=== PATIENT | male | born 1945 | race Two or more races ===

== ENCOUNTER 2024-10-06 09:30 | Outpatient (RCR) | payer MEDICARE, MEDICAID, SELFPAY ==
--- NOTE | 2024-09-29 14:53 | CTCCONSULT_ITS ---
[facility] [address] [place], [place] [address] Consultation Note Date: 09/29/2024 MR#: [id number] Name: LIZA DHALIWAL : 1945 Dx: C61 Malignant neoplasm of prostate Referring physician. Anmol Lewis MD Reason for consultation. Patient with history of prostate with bone mets with significant pain in kat mbar region referred for radiation oncology consultation. History of Present Illness: Patient is a 78-year-old gentleman well-known to me who underwent prostat ectomy at [facility] in December 05, 2011 for [place] score 9 prostate CA. Final path was pT3b N1 with 3 po sitive nodes and tumor involvement of seminal vesicle on the left side. PSA began rising slowly up t o 0.7 on 07/31/2018 and was recommended to postop radiation. At the time imaging studies showed no de finite evidence of mets. Patient completed 6660 cGy to the prostate region on January 27 with Lupron i njection 7.5 mg but did not wish to get it beyond the few monthly doses after his PSA became less flakita n 0.10. He also did not come back for follow-up for over years. Recently patient has been followed by Dr. Lewis and his PSA was noted to be very high at > 100 on and when repeated was also greater than 100. Patient has been having pain in his lumbar area Abdominal pelvic CT scan. 05/29/2024 revealed left lateral. Lymphadenopathy as well as pelvic lymph adenopathy. Bone scan 09/14/2024 and compared with one done 07-04 showed progression of osseous bone m ets L2-L3 and T3 area. Dr. Lewis has initiated Lupron patient and according to patient 3 monthly d oses thus far. Patient now referred for radiation oncology consultation. Past Medical History: Prostate cancer since 2011 status post prior surgery radiation and now with rec urrence. High blood pressure kidney stones diabetes Meds. 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 Denies smoking drinking Family history. Noncontributory Review of Systems: Has had significant low back lumbar pain denies thoracic area pain Physical Exam: General: Adequate nourished appearing gentleman in no acute distress HEENT: Atraumatic no cephalic extraocular is intact no oral lesions no cervical or supraclavicular ad enopathy CV: Chest clear to auscultation heart regular rate and rhythm ABD: Soft no organomegaly or tenderness EXT: No signs of clubbing or edema Back. Moderate tenderness in the lumbar area noted. Assessment:1. History of pT3pN1 CA the prostate status post prostatectomy November 2011. 2. XRT to the prostate region for high risk features and rising PSA January 2019 3. Recent discovery of very high PSA greater than 100 associated with bone mets in thoracolumbar are a as well as abdominal pelvic mets. 4. Receiving monthly Lupron injections for the past [address] Lewis's direction according to patient. 5. Radiation therapy would palliate patient's symptoms in the lumbar area. Denies pain in the thora cic region. Declines MRI that was suggested citing delays and his likely short lifespan considering his age. 6. We will use to lumbar spine our CT simulator along with the review of his CT scan and bone scan t o begin his treatment in a few days. 3000 cGy in 10 fractions via VMAT suggested. 7. Shall get imaging studies including PET along with other lab tests to evaluate his overall cancer condition and his treatment response. 8. Thank you very much for allowing me to evaluate and manage this patient.: Cc: Anmol Lewis MD Electronically signed by: Ryder Warren MD, DABR 09/29/2024 2:51 PM
--- NOTE | 2024-09-29 14:54 | CTCTXPLN_ITS ---
[facility] [place] [address] [place], [place] [address] Physician Clinical Treatment Planning Note Date of Service: 09/29/2024 Name: LIZA DHALIWAL : 1945 The patient has agreed to proceed with Radiation therapy. Tests and supporting medical records were interpreted to assist in defining the tumor location and extent of disease. Further imaging will be necessary to contour and delineate the volume to which the XRT will be provided. A. Treatment Intent: Palliative B. Modality: 6 MV C. Requested Technique: VMAT D. Treatment Site: L-spine E. Critical structures to be contoured on plan: F. In order to accomplish this plan, I am ordering/Prescribing the followin. Simulations (s) will be performed to accomplish a reproducible treatment position, to determine op timal treatment portals/beam arrangements, to design beam modifying devices and verify treatment port als on patient prior to the commencement of Radiation Therapy. L-spine 2. Devices; for immobilization and beam shaping: Vac-Nico 3. CT Guidance for placement of XRT bedoya Scan area: 4. Portal images Frequency: 5. Invivo transit dose measurement once per week on all VMAT patients. 6. Special Physics Consult Requested for: 7. Other requests: G. Dose Objectives: Palliative Electronically signed by: Ryder Warren M.D. 09/29/2024 2:52 PM
--- NOTE | 2024-09-29 14:55 | CTCTXPLNST_ITS ---
Radiation Oncology Treatment Planning Sheet Name: LIZA DHALIWAL MR#: [id number] : 1945 Dx: C61 Malignant neoplasm of prostate Date of Service: 09/29/2024 Account #: ?? Pt Treatment Intent: curative palliative other: Stage: Procedure CPT # Ordered Spec. Procedure 33842 Gil Complex (set-up) 04296 T 12 ? sacrum (treating L spine) 1 Gil Simple 50231 IMRT Plan 36889 1 MLC Devices VMAT 39763 3 Gil 3 D 71160 TRTMT dev Complex 09760 vaklok 1 TRTMT dev simple 31876 Basic Vincent 56508 6 Special Dosimetry 22826 Spec Physics 64884 Port Films 43966 SRS Cranial/1FX 61748 SBR 5 FX or Less /ex: 5 = 5 fx 92526 IMRT Simple 41647 3000 10 IMRT Complex 05677 IGRT 60879 8 Rad del com 6- 74746 Rad del com 09-29 06474 Cont Med Physics 63109 2 Treatment Planning 20449 1 Rad del com 20 mev 54372 Rad del inter 6 58557 Rad del inter 09-29 66134 Rad del simple 6 18623 Rad del simple 09-29 63588 Special Port Plan 63302 TRTMT dev inter 09476 Isodose Complex 71606 Isodose simple 04216 Resp Motion Mgmt Simulation 90210 Placement of Fiducial Markers 85682 Electronically Signed By: Ryder Warren MD, DABR 09/29/2024 2:53 PM
== END 2024-10-10 23:59 | disposition home or self-care (01) ==
LOC: SCTC 09:30
PROVIDERS: PCP Nurse Practitioner Family; Referring Provider Surgery; Visit Provider Radiology Therapeutic Radiology
DX: C61 Malignant neoplasm of prostate (principal); C79.51 Secondary malignant neoplasm of bone; Z90.79 Acquired absence of other genital organ(s); Z79.818 Long term (current) use of other agents affecting estrogen receptors and estrogen levels
CPT/HCPCS: 77014; 77290; 77300; 77301; 77334; 77338; 99213; G0463

== ENCOUNTER → 2024-11-03 | Outpatient (CLI) | payer MEDICARE, MEDICAID, SELFPAY ==
--- NOTE | 2024-11-03 08:00 | XR_ITS ---
Examination: MRI thoracic spine with intravenous contrast Technique: Multiple axial sagittal MRI images thoracic spine post intravenous administration 17 cc gadolinium Exam date and time: November 03, 2024 1019 hrs. Indications: Diagnosis malignant neoplasm prostate with back pain 4 months, positive nuclear medicine bone scan T3 Findings: Adequate alignment thoracic vertebral bodies No thoracic fracture No abnormal osseous enhancement characteristic for osseous metastatic disease No epidural or cervical cord enhancement Impression: No findings diagnostic for osseous metastatic disease
--- NOTE | 2024-11-03 08:30 | XR_ITS ---
Examination: MRI lumbar spine with intravenous contrast Technique: Multiple sagittal and axial MRI images post intravenous ministration 17 cc gadolinium Exam date and time: 06/03/2024 1049 hrs. Indications: Diagnosis malignant neoplasm prostate back pain, positive nuclear medicine bone scan September 14, 2024 L2-L3 level Findings: Adequate alignment lumbar vertebral bodies Significant enhancement involving L2, lesser enhancement involving L3-L4 and L1 Disc protrusion L2-L3 but no epidural tumor impinging upon the cauda equina Impression: Positive for osseous metastatic disease, but no thoracic cord or cauda equina definite tumor compression on this study
[2024-11-03 09:20] LABS: Basophils % (Auto) 0 % (0-2.5); Eosinophils # (Auto) 0.2 Thou/mm3 (0.0-0.5); Eosinophils % (Auto) 2 % (0-10); Hematocrit 39.7 % (41.0-53.0); Hemoglobin 13.4 g/dL (13.5-16.0); Immature Granulocytes % (Auto) 0 % (0-0); Immature Granulocytes Auto 0.02 Thou/mm3 (0.00-0.00); Lymphocytes # (Auto) 0.7 Thou/mm3 (1.0-4.8); Lymphocytes % (Auto) 11 % (10-50); Mean Corpuscular HGB Conc 33.8 g/dl (31.0-37.0); Mean Corpuscular Volume 89 fL (80-100); Monocytes # (Auto) 0.8 Thou/mm3 (0.0-0.8); Monocytes % (Auto) 12 % (0-12); Neutrophils # (Auto) 4.9 Thou/mm3 (1.8-7.7); Neutrophils % (Auto) 74 % (37-80); Nucleated Red Blood Cell % 0 /100 WBC (0); Platelet Count 236 Thou/mm3 (140-440); RDW Standard Deviation 41.1 fL (35.1-43.9); Red Blood Count 4.46 Miln/mm3 (4.50-5.90); White Blood Count 6.6 Thou/mm3 (3.8-10.6)
[2024-11-03 09:45] LABS: Prostate Specific Antigen 5.64 ng/mL (0-4.00)
[2024-11-03 09:48] LABS: Alanine Aminotransferase 27 U/L (10-49); Albumin, Serum 4.5 gm/dL (3.4-4.8); Albumin/Globulin Ratio 1.4 (1.2-2.2); Alkaline Phosphatase 104 U/L (46-116); Anion Gap 5 (7-16); Aspartate Amino Transferase 13 U/L (0-34); BUN/Creatinine Ratio 20 Ratio (12-20); Bilirubin,Total 0.6 mg/dL (0.3-1.2); Blood Urea Nitrogen 20 mg/dL (9-23); Calcium 9.8 mg/dL (8.3-10.6); Calcium (Corrected) 9.8 mg/dL (8.5-10.1); Carbon Dioxide 33.4 mMol/L (20.0-31.0); Chloride 99 mMol/L (98-107); Globulin 3.3 gm/dL (2.3-3.5); Glucose 199 mg/dL (74-106); Osmolality,Calculated 282 (275-295); Potassium 3.9 mMol/L (3.4-5.1); Sodium 137 mMol/L (136-145); Total Protein 7.8 gm/dL (5.7-8.2); eGFR > 60 See Note
== END | disposition home or self-care (01) ==
PROVIDERS: PCP Registered Nurse Community Health; Referring Provider Radiology Therapeutic Radiology; Visit Provider Radiology Therapeutic Radiology
DX: C79.9 Secondary malignant neoplasm of unspecified site (principal); C61 Malignant neoplasm of prostate
CPT/HCPCS: 36415; 72147; 72149; 80053; 84153; 85025; A9579

== ENCOUNTER 2024-11-10 10:07 | Outpatient (RCR) | payer MEDICARE, MEDICAID, SELFPAY ==
--- NOTE | 2024-10-19 10:36 | CTCTRTNOTE_ITS ---
[facility] [address] [place], [place] [address] Weekly Management Date: 10/19/2024 ?? Name: LIZA MADHURI Mcdonough.: 1945 A. Patient is currently at 1200 cGy. B. Patient tolerating well has no complaints resume radiation therapy. Electronically signed by: Ryder Warren M.D. 10/19/2024 10:34 AM
== END 2024-11-10 23:59 | disposition home or self-care (01) ==
LOC: SCTC 10:07
PROVIDERS: PCP Nurse Practitioner Family; Referring Provider Nurse Practitioner Family; Visit Provider Radiology Therapeutic Radiology
DX: Z51.0 Encounter for antineoplastic radiation therapy (principal); C61 Malignant neoplasm of prostate; C79.51 Secondary malignant neoplasm of bone
CPT/HCPCS: 77336; 77385; 99212; G0463

== ENCOUNTER → 2025-02-03 | Outpatient (CLI) | payer MEDICARE, MEDICAID, SELFPAY ==
--- NOTE | 2025-02-03 15:24 | EKG_ITS ---
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: ABIGAILLauren : 1945 Requested By: Glen Greene Order Number: [id number] Reading MD: Glen Greene Measurements Intervals [place] Rate: 62 P: 14 WV: 207 QRS: 4 QRSD: 94 T: 52 QT: 411 QTc: 419 Interpretive Statements SINUS RHYTHM MINIMAL VOLTAGE CRITERIA FOR LVH, CONSIDER NORMAL VARIANT [MEETS CRITERIA IN ONE OF: R(aVL), S(V1), R(V5), R(V5/V6)+S(V1)] INFERIOR MYOCARDIAL INFARCTION , PROBABLY OLD [40+ ms Q WAVE AND/OR ST/T ABNORMALITY IN II/aVF] Compared to ECG 01/20/2024 15:28:28 Myocardial infarct finding now present First degree AV block no longer present /store/S0/[id number]/ecg/[id number].pdf
[2025-02-03 15:25] LABS: Basophils # (Auto) 0.1 Thou/mm3 (0.0-0.2); Basophils % (Auto) 1 % (0-2.5); Eosinophils # (Auto) 0.6 Thou/mm3 (0.0-0.5); Eosinophils % (Auto) 8 % (0-10); Hematocrit 37.2 % (41.0-53.0); Hemoglobin 12.4 g/dL (13.5-16.0); Immature Granulocytes % (Auto) 0 % (0-0); Immature Granulocytes Auto 0.01 Thou/mm3 (0.00-0.00); Lymphocytes # (Auto) 1.4 Thou/mm3 (1.0-4.8); Lymphocytes % (Auto) 19 % (10-50); Mean Corpuscular HGB Conc 33.3 g/dl (31.0-37.0); Mean Corpuscular Volume 93 fL (80-100); Monocytes % (Auto) 13 % (0-12); Neutrophils # (Auto) 4.4 Thou/mm3 (1.8-7.7); Neutrophils % (Auto) 59 % (37-80); Nucleated Red Blood Cell % 0 /100 WBC (0); Platelet Count 336 Thou/mm3 (140-440); RDW Standard Deviation 45.8 fL (35.1-43.9); White Blood Count 7.4 Thou/mm3 (3.8-10.6)
[2025-02-03 15:46] LABS: Anion Gap 7 (7-16); BUN/Creatinine Ratio 22 Ratio (12-20); Blood Urea Nitrogen 33 mg/dL (9-23); Calcium 10.3 mg/dL (8.3-10.6); Carbon Dioxide 33.7 mMol/L (20.0-31.0); Chloride 100 mMol/L (98-107); Creatinine (Component) 1.5 mg/dL (0.6-1.3); Glucose 69 mg/dL (74-106); Osmolality,Calculated 286 (275-295); Potassium 4.4 mMol/L (3.4-5.1); Sodium 141 mMol/L (136-145); eGFR 48 See Note
== END | disposition home or self-care (01) ==
LOC: COPL 14:41
PROVIDERS: PCP Family Medicine
DX: Z01.818 Encounter for other preprocedural examination (principal)
CPT/HCPCS: 36415; 80048; 85025; 93005

== ENCOUNTER 2025-02-05 05:59 | Emergency (ER) | payer MEDICARE, MEDICAID, SELFPAY ==
[2025-02-05 06:00] VITALS: BMI 31.3
[2025-02-05 06:13] VITALS: BP 229/97; BP 243/117; PULSE 82; RESP 18; TEMP 37; O2SAT 95
--- NOTE | 2025-02-05 06:49 | XR_ITS ---
Examination: Duplex scan of the lower extremity, unilateral left complete Date and time of exam: January 28, 2025 0747 hours INDICATIONS: Left leg pain beginning 3 days ago Technique: Duplex scan of the extremity veins using B-mode/grayscale imaging and Doppler spectral analysis and color flow Attention is directed to internal echogenicity, compression and augmentation involving these veins, color flow assessment, spectral analysis Findings: Major deep venous structures in the extremity demonstrate normal course and caliber. There is no evidence of deep vein thrombosis. Normal color flow and spectral analysis Impression: Negative for DVT..
--- NOTE | 2025-02-05 06:51 | XR_ITS ---
Examination:Left hip AP, lateral, AP pelvis 3 views Technique: Hip AP lateral, AP pelvis, 3 views Exam date and time:February 05, 2025 0812 hours INDICATIONS: Onset left hip pain today. 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
[2025-02-05] MEDS: ONDANSETRON INJ 2 MG/ML INJ 2 ML 4 MG IV (07:21)
[2025-02-05] MEDS: MORPHINE SULF INJ 10 MG/ML VIAL 5 MG IVP (07:23)
[2025-02-05 07:25] VITALS: BP 244/94; PULSE 80; RESP 17; TEMP 36.9; O2SAT 90
[2025-02-05 07:34] VITALS: PULSE 77; RESP 17; RESP 90; O2SAT 95
[2025-02-05 07:37] LABS: Basophils % (Auto) 1 % (0-2.5); Eosinophils # (Auto) 0.6 Thou/mm3 (0.0-0.5); Eosinophils % (Auto) 7 % (0-10); Hematocrit 36.6 % (41.0-53.0); Hemoglobin 12.3 g/dL (13.5-16.0); Immature Granulocytes % (Auto) 0 % (0-0); Immature Granulocytes Auto 0.02 Thou/mm3 (0.00-0.00); Lymphocytes # (Auto) 1.1 Thou/mm3 (1.0-4.8); Lymphocytes % (Auto) 13 % (10-50); Mean Corpuscular HGB Conc 33.6 g/dl (31.0-37.0); Mean Corpuscular Hemoglobin 30.8 pg (25.0-35.0); Mean Corpuscular Volume 92 fL (80-100); Monocytes # (Auto) 1.1 Thou/mm3 (0.0-0.8); Monocytes % (Auto) 13 % (0-12); Neutrophils # (Auto) 5.3 Thou/mm3 (1.8-7.7); Neutrophils % (Auto) 66 % (37-80); Nucleated Red Blood Cell % 0 /100 WBC (0); Platelet Count 313 Thou/mm3 (140-440); RDW Standard Deviation 44.6 fL (35.1-43.9); Red Blood Count 3.99 Miln/mm3 (4.50-5.90); White Blood Count 8.1 Thou/mm3 (3.8-10.6)
[2025-02-05 07:53] LABS: Sed Rate (ESR) 13 mm/hr (0-20)
[2025-02-05 07:58] LABS: Alanine Aminotransferase 23 U/L (10-49); Albumin, Serum 4.1 gm/dL (3.4-4.8); Albumin/Globulin Ratio 1.3 (1.2-2.2); Alkaline Phosphatase 103 U/L (46-116); Anion Gap 6 (7-16); Aspartate Amino Transferase 23 U/L (0-34); BUN/Creatinine Ratio 21 Ratio (12-20); Bilirubin,Total 0.6 mg/dL (0.3-1.2); Blood Urea Nitrogen 29 mg/dL (9-23); Calcium 9.2 mg/dL (8.3-10.6); Calcium (Corrected) 9.2 mg/dL (8.5-10.1); Chloride 101 mMol/L (98-107); Creatinine (Component) 1.4 mg/dL (0.6-1.3); Estimated Creatinine Clearance 45.9 mL/min (>60); Globulin 3.1 gm/dL (2.3-3.5); Glucose 194 mg/dL (74-106); Osmolality,Calculated 286 (275-295); Potassium 4.5 mMol/L (3.4-5.1); Sodium 138 mMol/L (136-145); Total Protein 7.2 gm/dL (5.7-8.2); eGFR 52 See Note
--- NOTE | 2025-02-05 08:59 | PD.EDEXREM ---
ED Extremity Problem RME/HPI General Chief complaint: Extremity Injury, Lower Stated complaint: LEFT LEG PAIN Time Seen by Provider: 02/05/25 06:31 Arrival date/time: 02/05/25 05:59 RME / HPI RME / HPI Narrative: 79 year old male with history of prostate cancer with bone mets, underwent radiation therapy, hypertension, diabetes presents to the ED for complaint of left lower extremity pain beginning 3 days ago and remaining constant since. Described as a cramping sensation that runs along the entire leg with an aching pain to his left hip, rating as moderate to severe. Pain aggravated with movements and walking, minimally improved with immobilization. Denies any falls, injuries, or trauma. Denies any history of similar pain. Denies fevers, chills, leg swelling or redness. Related Data Home Medications ?Medication ?Instructions ?Recorded ?Confirmed benazepril 40 mg tablet 80 mg PO QDAY 05/05/19 06/24/23 metformin 500 mg tablet 500 mg PO BID 05/05/19 06/24/23 carvedilol 25 mg tablet 25 mg PO BID 08/19/21 06/24/23 atorvastatin 20 mg tablet 20 mg PO QDAY 04/26/23 06/24/23 hydrochlorothiazide 50 mg tablet 50 mg PO QDAY 04/26/23 06/24/23 insulin lispro protamine-lispro 50 unit subcut BID 04/26/23 06/24/23 100 unit/mL (75-25) subcutaneous pen (Humalog Mix 75-25 KwikPen) clonidine HCl 0.1 mg tablet 0.1 mg PO DAILY 06/24/23 06/24/23 semaglutide 3 mg tablet (Rybelsus) 3 mg PO QDAY 06/24/23 06/24/23 Previous Rx's ?Medication ?Instructions ?Recorded hydrocodone 5 mg-acetaminophen 325 1 tab PO Q6H PRN pain #14 tabs 01/20/24 mg tablet Allergies Allergy/AdvReac Type Severity Reaction Status Date / Time No Known Allergies Allergy Verified 06/25/23 10:27 Review of Systems Review of Systems Narrative Review of Systems: GEN: No fever, no chills EYES: No discharge, no pain HEENT: No ear pain, no congestion, no sore throat PULM: No shortness of breath, no cough CV: No chest pain, no palpitations GI: No nausea, no vomiting, no diarrhea, no pain : No frequency, no urgency, no dysuria MUSC/SKEL: +LLE pain, +left hip pain, no back pain SKIN: No rash NEURO: No weakness, no headache Past Medical History Past Medical History CARDIAC: Positive Cardiac Disorders, Hypercholesterolemia and Hypertension GASTROINTESTINAL: Positive Gastrointestinal Disorders and Obesity GENITOURINARY: Positive Prostate Cancer MUSCULOSKELETAL: Positive Musculoskeletal Disorders, Arthritis and Degenerative Disk Disease ENT: Positive Cataracts ENDOCRINE: Positive Endocrine Disorders and Diabetes Mellitus Type 2 PSYCHO/SOCIAL: Positive Depression and Anxiety OTHER HISTORY: Positive Chemotherapy, Radiation Therapy and Prostate Cancer Family History FAMILY HISTORY: Positive Family Surgery Surgical History SURGICAL: Positive Transurethral Resection; Negative Cardiac Surgery or Ear Surgery Social History SMOKING STATUS: Never smoker ED Exam Narrative Physical exam: GENERAL APPEARANCE: alert and oriented x 4, well-developed, well-nourished, no acute distress HEENT: Normocephalic, atraumatic; pupils equal, round, reactive to light; EOMI; mucous membranes pink, moist; oropharynx clear NECK: Supple LUNGS: CTABL; no wheezes, no rales, no rhonchi HEART: Regular rate, regular rhythm; normal S1, S2; no murmurs ABDOMEN: non distended; normal BS; soft, no tenderness, no guarding, no rebound; no masses, no organomegaly, no hernia BACK: no CVA tenderness EXTREMITIES: atraumatic; no edema NEUROLOGIC: awake; alert and oriented x4; cranial nerves II-XII grossly intact; no focal sensory or motor deficits PSYCHIATRIC: appropriate mood and affect SKIN: warm, dry, normal color; no rashes Course Course Course Narrative: 1208: Patient is deciding to leave against medical advise. I discussed a great length that without further evaluation and monitoring there may be unforeseen circumstances and deterioration causing permanent bodily harm or as a result of their choice. The patient is alert, oriented and competent at this time. The patient states that they are aware of the serious risks as explained, but they continue to wish to leave against medical advice. Quality Measures none Orders Category Date Time Status US venous doppler LE LT Stat Exams 02/05/25 06:49 Completed XR hip LT w pelvis 2-3V Stat Exams 02/05/25 06:51 Completed CBC Stat Lab 02/05/25 07:20 Completed CMP [Comprehensive Metabolic Panel] Stat Lab 02/05/25 07:20 Completed D-Dimer Stat Lab 02/05/25 07:20 Completed ESR [Sed Rate (ESR)] Stat Lab 02/05/25 07:20 Completed Morphine Inj Med 02/05/25 06:50 Discontinued 5 mg IVP X1 ONE Ondansetron Inj [Zofran Inj] Med 02/05/25 06:50 Discontinued 4 mg IV X1 ONE cloNIDine HCL [Catapres] Med 02/05/25 10:27 Discontinued 0.2 mg PO X1 ONE Vital Signs Vital signs: Vital Signs Temperature 98.6 F 02/05/25 06:13 Pulse Rate 82 02/05/25 06:13 Respiratory Rate 18 02/05/25 06:13 Blood Pressure 243/117 H 02/05/25 06:13 Pulse Oximetry (%) 95 02/05/25 06:13 Oxygen Delivery Method Room Air 02/05/25 06:13 Pulse ox is 95% on room air which is adequate. Extremity Problem MDM Narrative MDM Narrative:: Gabriella Pierce am scribing for and in the presence of Dr. Love. Patient data External records reviewed:: [facility] previous records (I reviewed ED visit on 01/20/2024) Clinical information provided by:: patient Social determinants that could affect healthcare access:: none Patient has the following chronic illnesses:: prostate cancer with bone mets, underwent radiation therapy, hypertension, diabetes How is presenting disease/condition affected by chronic disease/condition?: exacerbated by Evaluation data The following diagnostics were reviewed and interpreted by me:: lab results and radiology exam(s) (Hip/pelvis xray interpreted by me shows no fracture or dislocation, large stool burden, adequate joint space. ) Lab and/or radiology exams considered but not ordered:: None Interpretation Summary: Ordering Physician: Keri Love MD Date of Service: 02/05/25 Procedure(s): US venous doppler LE LT Accession Number(s): [id number] cc: Glen Greene PA-C; Jefferson Schwartz MD; Keri Love MD~ Examination: Duplex scan of the lower extremity, unilateral left complete Date and time of exam: January 28, 2025 0747 hours INDICATIONS: Left leg pain beginning 3 days ago Technique: Duplex scan of the extremity veins using B-mode/grayscale imaging and Doppler spectral analysis and color flow Attention is directed to internal echogenicity, compression and augmentation involving these veins, color flow assessment, spectral analysis Findings: Major deep venous structures in the extremity demonstrate normal course and caliber. There is no evidence of deep vein thrombosis. Normal color flow and spectral analysis Impression: Negative for DVT.. Dictated By: Jefferson Schwartz MD Signed By: <Electronically signed by Jefferson Schwartz MD in OV> 02/05/25 0940 Ordering Physician: Keri Love MD Date of Service: 02/05/25 Procedure(s): XR hip LT w pelvis 2-3V Accession Number(s): [id number] cc: Glen Greene PA-C; Jefferson Schwartz MD; Keri Love MD~ Examination:Left hip AP, lateral, AP pelvis 3 views Technique: Hip AP lateral, AP pelvis, 3 views Exam date and time:February 05, 2025 0812 hours INDICATIONS: Onset left hip pain today. 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 Dictated By: Jefferson Schwartz MD Signed By: <Electronically signed by Jefferson Schwartz MD in OV> 02/05/25 0921 Medications / Prescriptions Medications or Prescriptions considered but not ordered:: None Medication administrations:: Medication Administration History Discontinued Medications Clonidine (Clonidine Hcl 0.1 Mg Tablet) 0.2 mg PO X1 ONE Stop: 02/05/25 10:28 Last Admin: 02/05/25 10:31 Dose: 0.2 mg Documented By: GM Morphine Sulfate (Morphine Sulf Inj 10 Mg/Ml Vial) 5 mg IVP X1 ONE Stop: 02/05/25 06:51 Last Admin: 02/05/25 07:23 Dose: 5 mg Documented By: GM Ondansetron HCl (Ondansetron Inj 2 Mg/Ml Inj 2 Ml) 4 mg IV X1 ONE Stop: 02/05/25 06:51 Last Admin: 02/05/25 07:21 Dose: 4 mg Documented By: GM see above Consultations Consultation(s) initiated? (list below): No Diagnosis Extremity Problem Differential Diagnosis: gout, cellulitis, superficial thrombophlebitis, lower extremity edema and deep vein thrombosis of lower extremity Most likely diagnosis given after review of the tests above:: Left leg pain Admission Indicated Admission indicated?: not indicated Explain why admission is indicated or not indicated:: Patient left AMA Admission Request Was there a request for admission?: No Disposition Plan Disposition Plan: other (specify) (left AMA ) Discharge Plan Plan Patient Disposition: Left Against Medical Advice Prescriptions/Referrals Prescriptions/Med Rec: No Action benazepril 40 mg tablet 80 mg PO QDAY metformin 500 mg tablet 500 mg PO BID carvedilol 25 mg Tablet 25 mg PO BID hydrocodone-acetaminophen 5-325 mg tablet 1 tab PO Q6H MDD 9 PRN (Reason: pain) Qty: 14 0RF atorvastatin 20 mg tablet 20 mg PO QDAY Patient Comments: TAKE 1 TABLET BY MOUTH ONCE DAILY hydrochlorothiazide 50 mg tablet 50 mg PO QDAY Patient Comments: TAKE 1 TABLET BY MOUTH ONCE DAILY IN THE MORNING insulin lispro protamin-lispro [Humalog Mix 75-25 KwikPen] 100 unit/mL (75-25) insulin pen 50 unit SUBCUT BID Patient Comments: INJECT 50 UNITS SUBCUTANEOUSLY TWICE DAILY clonidine HCl 0.1 mg Tablet 0.1 mg PO DAILY Rybelsus 3 mg Tablet 3 mg PO QDAY Referrals: Glen Greene PA-C [Primary Care Provider] - In 1 week Problem List Clinical Impression: Left leg pain Patient/Caregiver Discharge Instructions Print Language: Micronesian
--- NOTE | 2025-02-05 09:31 | CHAP ---
Visited and prayed for patient. He expressed gratitude.
[2025-02-05 09:32] VITALS: BP 249/121; PULSE 79; RESP 18; TEMP 36.8; O2SAT 97
--- NOTE | 2025-02-05 10:28 | PC.NURSE ---
PT AMBULATED AROUND ROOM TO URINATE; PT PLACED BACK IN MONITORS . PT O2 SAT 74% ON RA; PT PLACED BACK IN NC @ 2L, PT NOW SATTING AT 99%. DR. IZAGUIRRE MADE AWARE. NO NEW ORDERS AT THIS TIME.
[2025-02-05 10:31] VITALS: BP 236/116; PULSE 83; RESP 15; TEMP 36.8; O2SAT 99
[2025-02-05] MEDS: cloNIDine HCL 0.1 MG TABLET 0.2 MG PO (10:31)
[2025-02-05 11:45] LABS: D-Dimer < 250 ng/mL (<600)
== END 2025-02-05 12:08 | disposition left against medical advice (07) ==
LOC: SERX 08:20
PROVIDERS: Emergency Provider Emergency Medicine; PCP Family Medicine
DX: M16.12 Unilateral primary osteoarthritis, left hip (principal); M79.605 Pain in left leg; Z53.29 Procedure and treatment not carried out because of patient's decision for other reasons
CPT/HCPCS: 36415; 73502; 80053; 85025; 85379; 85652; 93971; 96374; 96375; 99284; J2270; J2405; A9270

== ENCOUNTER 2025-02-06 05:08 | Emergency (ER) | payer MEDICARE, MEDICAID, SELFPAY ==
[2025-02-06 05:08] VITALS: BMI 31.1
[2025-02-06 05:16] VITALS: BP 184/74; PULSE 96; RESP 18; TEMP 36.7; O2SAT 92
--- NOTE | 2025-02-06 05:34 | EDRME_ITS ---
Rapid Medical Screening Exam [facility] Arrival date/time: 02/06/25 05:08 79M with history of stage 4 prostate cancer, DM, and HTN presents to ED with pain from waist down w/o fall/trauma. Patient was here yesterday with unremarkable blood work, US venous Doppler, and XR hip. Patient AMA'd yesterday because it was taking too long. Patient is back due to worsening pain. Patient has been taking Diclofenac and Gabapentin at home w/o relief. Patient states he has an appt in the next few days with his oncologist. Patient is okay seeing if a Hubbard will help and if it does, he is happy to go home with that w/o any further tests. Chief Complaint: Abdominal Pain Vital signs: Vital Signs Temperature 98.0 F 02/06/25 05:16 Pulse Rate 96 02/06/25 05:16 Respiratory Rate 18 02/06/25 05:16 Blood Pressure 184/74 H 02/06/25 05:16 Pulse Oximetry (%) 92 L 02/06/25 05:16 Oxygen Delivery Method Room Air 02/06/25 05:16
[2025-02-06] MEDS: HYDROcodone/APAP 5/325 TABLET 1 TAB PO (05:49)
[2025-02-06 06:49] VITALS: BP 146/93; PULSE 69; RESP 18; TEMP 36.7; O2SAT 91
--- NOTE | 2025-02-06 06:51 | EDNOTE_ITS ---
<Statement entered by Keri Love MD - 02/06/25 17:33> As co-signing physician, I was present and available for consult prn. I concur with the plan and care as documented by the midlevel provider. ED General RME/HPI General Chief complaint: Abdominal Pain Stated complaint: GROIN AND BILATERAL LEG PAIN Time Seen by Provider: 02/06/25 06:43 Arrival date/time: 02/06/25 05:08 CC: Lower extremity pain HPI patient has a significant history who comes to the emergency room with complaining of back pain and lower extremity pain. The patient was given Percocet prior to my arrival, at the time of the assessment at 652 the patient is feeling much better and wants to go home he is refusing all additional interventions. RME / HPI RME / HPI narrative: 02/06/25 05:08 79M with history of stage 4 prostate cancer, DM, and HTN presents to ED with pain from waist down w/o fall/trauma. Patient was here yesterday with unremarkable blood work, US venous Doppler, and XR hip. Patient AMA'd yesterday because it was taking too long. Patient is back due to worsening pain. Patient has been taking Diclofenac and Gabapentin at home w/o relief. Patient states he has an appt in the next few days with his oncologist. Patient is okay seeing if a [place] will help and if it does, he is happy to go home with that w/o any further tests. Related Data Home Medications ?Medication ?Instructions ?Recorded ?Confirmed benazepril 40 mg tablet 80 mg PO QDAY 05/05/1906/24 metformin 500 mg tablet 500 mg PO BID 05/05/1906/24 carvedilol 25 mg tablet 25 mg PO BID 08/19/21 atorvastatin 20 mg tablet 20 mg PO QDAY 04/26/2306/24 hydrochlorothiazide 50 mg tablet 50 mg PO QDAY 3 06/24/23 insulin lispro protamine-lispro 50 unit subcut BID 06/24/23 100 unit/mL (75-25) subcutaneous pen (Humalog Mix 75-25 KwikPen) clonidine HCl 0.1 mg tablet 0.1 mg PO DAILY 06/24/23 0 06/24/23 semaglutide 3 mg tablet (Rybelsus) 3 mg PO QDAY 06/24/23 Previous Rx's ?Medication ?Instructions ?Recorded hydrocodone 5 mg-acetaminophen 325 1 tab PO Q6H PRN pa in #14 tabs 01/20/24 mg tablet Allergies Allergy/AdvReac Type Severity Reaction Status Date / Time No Known Allergies Allergy Verified 06/25/23 10:27 Review of Systems Review of Systems Systems Reviewed: All systems reviewed, normal except as documented Past Medical History Past Medical History NEUROLOGIC: Negative Neurological Disorders or Seizures CARDIAC: Positive Cardiac Disorders, Hypercholesterolemia and Hypertension; Negative Congestive Heart Failure or Edema RESPIRATORY: Negative Chronic Obstructive Pulmonary Disease (COPD), Asthma or Pneumonia GASTROINTESTINAL: Positive Gastrointestinal Disorders and Obesity GENITOURINARY: Positive Prostate Cancer; Negative Genitourinary Disorders or Renal Disease MUSCULOSKELETAL: Positive Musculoskeletal Disorders, Arthritis and Degenerative Disk Disease ENT: Positive Cataracts ENDOCRINE: Positive Endocrine Disorders and Diabetes Mellitus Type 2; Negative Diabetes Mellitus Type 1 HEMATOLOGIC: Negative Blood Disorders, Anemia or Sickle Cell Disease PSYCHO/SOCIAL: Positive Depression and Anxiety OTHER HISTORY: Positive Chemotherapy, Radiation Therapy and Prostate Cancer; Negative Autoimmune Disease, Shingles, Falls, Blood Transfusions, Blood Transfusion Reaction, Anesthesia Reactions, MRSA, VRSA or Chicken Pox Family History FAMILY HISTORY: Positive Family Surgery; Negative Family Psychiatric Problems, Family Respiratory Disorders, Family Cardiac Disorders, Family Gastrointestinal Problems, Family Cancer or Family Anesthesia Reaction Surgical History SURGICAL: Positive Transurethral Resection; Negative Cardiac Surgery or Ear Surgery Social History SMOKING STATUS: Never smoker ED Exam Narrative Physical exam: [General: Appears not in any acute distress Head normocephalic HEENT: Within acceptable limits Neck is supple nontender Chest equal chest rise nontender to palpation Respiratory: Clear to auscultation no wheezes crackles or rubs CV: Rate rhythm is regular no murmurs rubs or clicks Abdomen soft nontender no masses positive bowel sounds all 4 quadrants Back: No CVA tenderness no spinous process tenderness from cervical spine thoracic and lumbar spine Skin: Intact no petechiae rash induration ulceration or crepitus Extremities: Moving all extremity against resistance cap refill less than 2 s econds neurosensory intact assessed in a wheelchair with a cane at his side. Neuro: Awake alert oriented x3 Glascow coma 15 no focal deficits] Course Quality Measures none Orders Category Date Time Status HYDROcodone*/APAP 5/325 [[place] 5/325] Med 02/06/25 05:34 Discontinued 1 tab PO X1 ONE Vital Signs Vital signs: Vital Signs Temperature 98.0 F 02/06/25 05:16 Pulse Rate 96 02/06/25 05:16 Respiratory Rate 18 02/06/25 05:16 Blood Pressure 184/74 H 02/06/25 05:16 Pulse Oximetry (%) 92 L 02/06/25 05:16 Oxygen Delivery Method Room Air 02/06/25 05:16 [facility] Patient data External records reviewed:: [facility] previous records Clinical information provided by:: patient Social determinants that could affect healthcare access:: none Patient has the following chronic illnesses:: Prostate CA How is presenting disease/condition affected by chronic disease/condition?: exacerbated by Evaluation data The following diagnostics were reviewed and interpreted by me:: other (specify) (None) Lab and/or radiology exams considered but not ordered:: None Interpretation Summary: Back pain lower extremity pain Medications Medications considered but not ordered:: None Medication administrations:: Medication Administration History Discontinued Medications Hydrocodone Bitart/Acetaminophen (Hydrocodone/Apap 5/325 Tablet) 1 tab PO X1 ONE Stop: 02/06/25 05:35 Last Admin: 02/06/25 05:49 Dose: 1 tab Documented By: CLAUDIA None Consultations Consultation(s) initiated? (list below): No Diagnosis Differential Diagnosis ED Complaint MDM: Back pain lower extremity pain poor pain management Most likely diagnosis given after review of the tests above:: Chronic pain Admission Indicated Admission indicated?: not indicated Explain why admission is indicated or not indicated:: Stable for discharge Admission Request Was there a request for admission?: No Disposition Plan Disposition Plan: Discharge Discharge Attestation Discharge Attestation: The patient and all family members were given an opportunity to ask questions and understood the discharge instructions. Discharge instructions specifically effects, indications for sooner follow up or return to the emergency department, and the expected course of current diagnosis. Patient condition: Stable Medical Decision Making Differential Diagnosis Differential Diagnosis: Back pain lower extremity pain poor pain management Discharge Plan Plan Patient Disposition: HOME (Self Care) Patient condition on transfer: Stable Prescriptions/Referrals Prescriptions/Med Rec: No Action benazepril 40 mg tablet 80 mg PO QDAY metformin 500 mg tablet 500 mg PO BID carvedilol 25 mg Tablet 25 mg PO BID hydrocodone-acetaminophen 5-325 mg tablet 1 tab PO Q6H MDD 9 PRN (Reason: pain) Qty: 14 0RF atorvastatin 20 mg tablet 20 mg PO QDAY Patient Comments: TAKE 1 TABLET BY MOUTH ONCE DAILY hydrochlorothiazide 50 mg tablet 50 mg PO QDAY Patient Comments: TAKE 1 TABLET BY MOUTH ONCE DAILY IN THE MORNING insulin lispro protamin-lispro [Humalog Mix 75-25 KwikPen] 100 unit/mL (75-25) insulin pen 50 unit SUBCUT BID Patient Comments: INJECT 50 UNITS SUBCUTANEOUSLY TWICE DAILY clonidine HCl 0.1 mg Tablet 0.1 mg PO DAILY Rybelsus 3 mg Tablet 3 mg PO QDAY Referrals: Glen Greene PA-C [Primary Care Provider] - In 1 week Problem List Clinical Impression: Back pain Patient/Caregiver Discharge Instructions Education Materials: Back Safety: Basics of Good Posture Additional Instructions: Follow-up with your primary care provider for additional pain management as necessary. Print Language: Greek Stand Alone Forms: Jayne Award Info., Patient Portal Info Letter SONG/DAVID Supervising Physician PA/DAVID Supervising Physician: Frederick Huffman ENP
== END 2025-02-06 07:02 | disposition home or self-care (01) ==
PROVIDERS: Emergency Provider Emergency Medicine; PCP Family Medicine
DX: M54.9 Dorsalgia, unspecified (principal); E11.9 Type 2 diabetes mellitus without complications; I10 Essential (primary) hypertension; M79.604 Pain in right leg; M79.605 Pain in left leg
CPT/HCPCS: 99283; A9270

== ENCOUNTER 2025-02-09 11:32 | Outpatient (RCR) | payer MEDICARE, MEDICAID, SELFPAY ==
--- NOTE | 2025-02-09 12:42 | CTCFLWUP_ITS ---
[facility] [address] [place], [place] [address] FOLLOW-UP NOTE Date: 02/09/2025 MR#: [id number] Name: LIZA DHALIWAL : 1945 Dx: C61 Malignant neoplasm of prostate C79.51 Secondary malignant neoplasm of bone Identification. Patient with history of prostate CA dating back to 2011 when he underwent surgery at [facility] for Margaux score 9 prostate CA [id number] . Noted to have rising PSA on 07/31/2018 and was recommended to postop radiation. Patient received 6660 cGy completing in January 2019 with limited Lupron injections which did not wish to go beyond several doses. Hips his PSA dropped to less than 0.1 and did not come back for several years Recently his PSA had risen dramatically over 100 with bone scan on 09/14/2024 showing widespread bony mets. MRI 11/03/2024 osseous mets involving L-spine but no cord involvement. Patient had 3000 cGy delivered to the L-spine area with good palliation of pain completed in October. Recently pain has returned not only in the back but the pelvic area. Went to the ER 02/05/2025 where pelvis x-ray did not show any obvious mets and venous Doppler left lower extremity was negative for DVT assessment #1 stage IV prostate CA with bone mets. Prior operation 2011 and postop radiation 2018 for rising PSA. #2. Bone mets noted with very high PSA for the past year. Lumbar radiation completed October 2024. #3. Dr. Lewis has reinitiated Lupron injections. #4. checked Paxers website. Will get MRI of the pelvis and bone scan prior to next visit. I elected to place patient on [place] 5 every 6 as needed Cc: Anmol Greene PA-C [facility] Electronically signed by: Ryder Warren M.D. 02/09/2025 12:40 PM
== END 2025-03-10 23:59 | disposition home or self-care (01) ==
LOC: SCTC 11:32
PROVIDERS: PCP Family Medicine; Referring Provider Family Medicine; Visit Provider Radiology Therapeutic Radiology
DX: C61 Malignant neoplasm of prostate (principal); C79.51 Secondary malignant neoplasm of bone; Z92.3 Personal history of irradiation
CPT/HCPCS: 99213; G0463

== ENCOUNTER 2025-02-15 02:31 | Emergency (ER) | payer MEDICARE, MEDICAID, SELFPAY ==
[2025-02-15 02:43] VITALS: BP 209/104; PULSE 78; RESP 15; TEMP 37; O2SAT 96
[2025-02-15 02:44] VITALS: BMI 31.3
--- NOTE | 2025-02-15 02:57 | PD.EDADULT ---
ED General RME/HPI General Chief complaint: General Adult/Misc Complain Stated complaint: LEFT LOWER BACK PAIN RADIATING TO LEG Time Seen by Provider: 02/15/25 02:39 Arrival date/time: 02/15/25 02:31 RME / HPI RME / HPI narrative: 79-year-old male with history of stage IV metastatic prostate cancer with bony metastasis, diabetes, hypertension, hyperlipidemia presents for evaluation of chronic left leg pain. Patient reports that he took Mabie 5 mg at approximately 01 100 today with minimal relief in his symptoms. He states he has been taking it every 6 hours with minimal pain relief. Denies chest pain, shortness of breath, headache, weakness, visual changes, fever, urinary retention, hematuria, abdominal pain, numbness, constipation. Patient was recently seen in the ED with similar symptoms and had a workup that was negative for DVT and acute changes to bony pelvis. Patient is being followed by oncology and had his most recent appointment last week with plan for future MRI. Patient reports he has been noncompliant with his blood pressure medication for the last several days. Related Data Home Medications ?Medication ?Instructions ?Recorded ?Confirmed benazepril 40 mg tablet 80 mg PO QDAY 05/05/19 06/24/23 metformin 500 mg tablet 500 mg PO BID 05/05/19 06/24/23 carvedilol 25 mg tablet 25 mg PO BID 08/19/21 06/24/23 atorvastatin 20 mg tablet 20 mg PO QDAY 04/26/23 06/24/23 hydrochlorothiazide 50 mg tablet 50 mg PO QDAY 04/26/23 06/24/23 insulin lispro protamine-lispro 50 unit subcut BID 04/26/23 06/24/23 100 unit/mL (75-25) subcutaneous pen (Humalog Mix 75-25 KwikPen) clonidine HCl 0.1 mg tablet 0.1 mg PO DAILY 06/24/23 06/24/23 semaglutide 3 mg tablet (Rybelsus) 3 mg PO QDAY 06/24/23 06/24/23 Previous Rx's ?Medication ?Instructions ?Recorded hydrocodone 5 mg-acetaminophen 325 1 tab PO Q6H PRN pain #14 tabs 01/20/24 mg tablet Allergies Allergy/AdvReac Type Severity Reaction Status Date / Time No Known Allergies Allergy Verified 06/25/23 10:27 Course Orders Category Date Time Status Morphine Inj Med 04/07/25 02:57 Discontinued 5 mg IM X1 ONE Vital Signs Vital signs: Vital Signs Temperature 98.6 F 02/15/25 02:43 Pulse Rate 78 02/15/25 02:43 Respiratory Rate 15 02/15/25 02:43 Blood Pressure 209/104 H 02/15/25 02:43 Pulse Oximetry (%) 96 02/15/25 02:43 Oxygen Delivery Method Room Air 02/15/25 02:43 MDM Medications Medication administrations:: Medication Administration History Discontinued Medications Morphine Sulfate (Morphine Sulf Inj 10 Mg/Ml Vial) 5 mg IM X1 ONE Stop: 02/15/25 02:58 Last Admin: 02/15/25 03:44 Dose: 5 mg Documented By: AM Discharge Plan Plan Patient Disposition: HOME (Self Care) Disposition Comment: stable Prescriptions/Referrals Prescriptions/Med Rec: No Action benazepril 40 mg tablet 80 mg PO QDAY metformin 500 mg tablet 500 mg PO BID carvedilol 25 mg Tablet 25 mg PO BID hydrocodone-acetaminophen 5-325 mg tablet 1 tab PO Q6H MDD 9 PRN (Reason: pain) Qty: 14 0RF atorvastatin 20 mg tablet 20 mg PO QDAY Patient Comments: TAKE 1 TABLET BY MOUTH ONCE DAILY hydrochlorothiazide 50 mg tablet 50 mg PO QDAY Patient Comments: TAKE 1 TABLET BY MOUTH ONCE DAILY IN THE MORNING insulin lispro protamin-lispro [Humalog Mix 75-25 KwikPen] 100 unit/mL (75-25) insulin pen 50 unit SUBCUT BID Patient Comments: INJECT 50 UNITS SUBCUTANEOUSLY TWICE DAILY clonidine HCl 0.1 mg Tablet 0.1 mg PO DAILY Rybelsus 3 mg Tablet 3 mg PO QDAY Referrals: Glen Greene PA-C [Primary Care Provider] - In 1 week Problem List Clinical Impression: Chronic pain due to malignant neoplastic disease Patient/Caregiver Discharge Instructions Education Materials: Taking Opioid Medicines, ED Chronic Pain Print Language: Faroese Stand Alone Forms: Jayne Award Info., Patient Portal Info Letter PA/INTEGRATION ARCHITECT Supervising Physician PA/INTEGRATION ARCHITECT Supervising Physician: Dr. Warren
[2025-02-15] MEDS: MORPHINE SULF INJ 10 MG/ML VIAL 5 MG IM (03:44)
[2025-02-15 04:22] VITALS: BP 217/100; PULSE 79; RESP 17; TEMP 36.7
== END 2025-02-15 04:26 | disposition home or self-care (01) ==
PROVIDERS: Emergency Provider Emergency Medicine; PCP Family Medicine
DX: G89.3 Neoplasm related pain (acute) (chronic) (principal); I10 Essential (primary) hypertension; E11.9 Type 2 diabetes mellitus without complications; E78.5 Hyperlipidemia, unspecified; Z91.148 Patient's other noncompliance with medication regimen for other reason; Z85.46 Personal history of malignant neoplasm of prostate
CPT/HCPCS: 96372; 99283; J2270

== ENCOUNTER → 2025-03-09 | Outpatient (CLI) | payer MEDICARE, MEDICAID, SELFPAY ==
--- NOTE | 2025-03-09 12:30 | XR_ITS ---
Examination: Bone scan whole body, radioisotope Date and time of exam: March 09, 2025 1208 hours Comparison September 14, 2024 INDICATIONS: Diagnosis malignant neoplasm prostate prostatectomy 10 years ago Technique: Study has been performed with intravenous administration of 23 mci 99M technetium MDP. Anterior, posterior whole body images are obtained. Images have been obtained including the lower extremities. Findings: Abnormal uptake in the lumbar spine again depicted although slightly less intense No abnormal uptake right anterior rib likely the seventh rib Asymmetric uptake about the knees more prominent uptake prominent proximal tibia on the left IMPRESSION: New uptake anterior right rib and proximal left tibia, recommend follow-up plain films lumbar spine right rib series and left knee
== END | disposition home or self-care (01) ==
LOC: SNUC 08:22
PROVIDERS: Visit Provider Radiology Therapeutic Radiology
DX: R93.7 Abnormal findings on diagnostic imaging of other parts of musculoskeletal system (principal); C61 Malignant neoplasm of prostate; C79.51 Secondary malignant neoplasm of bone
CPT/HCPCS: 78306; A9503

== ENCOUNTER → 2025-03-12 | Outpatient (CLI) | payer MEDICARE, MEDICAID, SELFPAY ==
--- NOTE | 2025-03-12 13:15 | XR_ITS ---
Examination: MRI pelvis with intravenous contrast TECHNIQUE: Multiple coronal axial sagittal MR pelvis images post intravenous ministration 17 cc gadolinium Exam date and time: March 12, 2025 1330 hours INDICATIONS: Diagnosis malignant neoplasm prostate, lower back pain syncopal pain 4 months FINDINGS: Foci of enhancement involving L3, L4, inferior L5 Hips bones of the pelvis do not demonstrate abnormal enhancement Moderate stool in the rectum Contracted urinary bladder Prostate tissue is not depicted No free fluid in the pelvis Moderate narrowing hip joints IMPRESSION: Suspicious for osseous metastatic disease involving L3, L4, L5
== END | disposition home or self-care (01) ==
LOC: SMRI 12:35
PROVIDERS: PCP Radiology Therapeutic Radiology; Referring Provider Radiology Therapeutic Radiology; Visit Provider Radiology Therapeutic Radiology
DX: C61 Malignant neoplasm of prostate (principal); C79.51 Secondary malignant neoplasm of bone
CPT/HCPCS: 72196; A9579

== ENCOUNTER → 2025-04-26 | Outpatient (CLI) | payer MEDICARE, MEDICAID, SELFPAY ==
[2025-04-26 08:42] LABS: Basophils % (Auto) 1 % (0-2.5); Eosinophils # (Auto) 0.4 Thou/mm3 (0.0-0.5); Eosinophils % (Auto) 6 % (0-10); Hematocrit 36.4 % (41.0-53.0); Hemoglobin 12.1 g/dL (13.5-16.0); Immature Granulocytes % (Auto) 0 % (0-0); Immature Granulocytes Auto 0.02 Thou/mm3 (0.00-0.00); Lymphocytes # (Auto) 1.4 Thou/mm3 (1.0-4.8); Lymphocytes % (Auto) 21 % (10-50); Mean Corpuscular HGB Conc 33.2 g/dl (31.0-37.0); Mean Corpuscular Hemoglobin 30.5 pg (25.0-35.0); Mean Corpuscular Volume 92 fL (80-100); Monocytes # (Auto) 0.8 Thou/mm3 (0.0-0.8); Monocytes % (Auto) 12 % (0-12); Neutrophils % (Auto) 60 % (37-80); Nucleated Red Blood Cell % 0 /100 WBC (0); Platelet Count 328 Thou/mm3 (140-440); RDW Standard Deviation 42.5 fL (35.1-43.9); Red Blood Count 3.97 Miln/mm3 (4.50-5.90); White Blood Count 6.5 Thou/mm3 (3.8-10.6)
[2025-04-26 08:43] LABS: INR 1.1 (0.9-1.3); Partial Thromboplastin Time 26.4 Seconds (22.0-36.0); Prothrombin Time 11.9 Seconds (9.0-12.2)
[2025-04-26 09:00] LABS: Anion Gap 8 (7-16); BUN/Creatinine Ratio 17 Ratio (12-20); Blood Urea Nitrogen 24 mg/dL (9-23); Calcium 9.5 mg/dL (8.3-10.6); Carbon Dioxide 34.7 mMol/L (20.0-31.0); Chloride 99 mMol/L (98-107); Creatinine (Component) 1.4 mg/dL (0.6-1.3); Glucose 354 mg/dL (74-106); Osmolality,Calculated 301 (275-295); Potassium 4.3 mMol/L (3.4-5.1); Sodium 142 mMol/L (136-145); eGFR 52 See Note
== END | disposition home or self-care (01) ==
LOC: COPL 06:52
PROVIDERS: PCP Family Medicine; Referring Provider Internal Medicine; Visit Provider Internal Medicine
DX: I25.10 Atherosclerotic heart disease of native coronary artery without angina pectoris (principal); I48.91 Unspecified atrial fibrillation
CPT/HCPCS: 36415; 80048; 85025; 85610; 85730

== ENCOUNTER 2025-04-29 10:23 | Outpatient (AMB) | payer MEDICARE, MEDICAID, SELFPAY ==
[2025-04-29 10:49] VITALS: BP 154/77; PULSE 76; RESP 19; O2SAT 91; BMI 30.6
--- NOTE | 2025-04-29 10:49 | PD.ORTHCLVIS ---
Vital signs 04/29/25 10:49 Height 1.68 m Height Method Stated Weight 86.381 kg Weight Measurement Method Standing Scale BMI 30.6 BP 154/77 H Blood Pressure Source Automatic Cuff Blood Pressure Location Left Upper Arm Position Sitting Respiration 19 Pulse 76 Pulse Source Monitor Temp Source Temporal Artery Scan Pulse Oximetry (%) 91 L Oxygen Delivery Method Room Air Med/Allergies Allergies & Medications Allergies No Known Allergies Allergy (Verified 04/29/25 10:50) Medication Reconciliation benazepril 40 mg tablet 80 mg PO QDAY 05/05/19 [History Confirmed 04/29/25] metformin 500 mg tablet 500 mg PO BID 05/05/19 [History Confirmed 04/29/25] carvedilol 25 mg tablet 25 mg PO BID 08/19/21 [History Confirmed 04/29/25] atorvastatin 20 mg tablet 20 mg PO QDAY 04/26/23 [History Confirmed 04/29/25] hydrochlorothiazide 50 mg tablet 50 mg PO QDAY 04/26/23 [History Confirmed 04/29/25] insulin lispro protamine-lispro 100 unit/mL (75-25) subcutaneous pen (Humalog Mix 75-25 KwikPen) 50 unit subcut BID 04/26/23 [History Confirmed 04/29/25] clonidine HCl 0.1 mg tablet 0.1 mg PO DAILY 06/24/23 [History Confirmed 04/29/25] semaglutide 3 mg tablet (Rybelsus) 3 mg PO QDAY 06/24/23 [History Confirmed 04/29/25] hydrocodone 5 mg-acetaminophen 325 mg tablet 1 tab PO Q6H PRN pain #14 tabs 01/20/24 [Rx Confirmed 04/29/25] Exam Exam Patient is in no acute distress and is cooperative with the examination today. Breathing is nonlabored. In no respiratory distress. Patient has no paraspinal tenderness. Spinal deformity cannot be appreciated. The gait of the patient is nonantalgic Bilateral extremities were evaluated and demonstrates sensation intact to light touch. Palpable pedal pulses are present. No significant edema is present. Bilateral knees were examined and the patient has full strength and range of motion.. The right hip was examined. Patient was able to flex to 90 degrees, adduct to 30 degrees, abduct to 40 degrees, internally rotate to 20 degrees, and externally rotate to 20 degrees. Patient has a negative logroll. Stinchfield is negative. The patient is nontender diffusely to touch. The left hip was examined. Patient was able to flex to 90 degrees, adduct to 30 degrees, abduct to 40 degrees, internally rotate to 20 degrees, and externally rotate to 20 degrees. Patient has a negative logroll. The stinchfield is negative. X-rays demonstrate moderate arthritis. There is significant degenerative changes of his lumbar spine. He is also has a pelvic MRI which demonstrates mets in his lumbar spine Assessment and Plan Problem List (1) Metastatic cancer: Status: Acute Plan: Patient is a 79-year-old male with back pain and metastatic cancer. His significant degenerative changes on the x-rays. 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 He has she does not examine like he has hip arthritis and I think the back is likely causing his problems which is consistent with his known mets. We discussed that he should see his primary care provider regarding his metastatic cancer Advanced Care Planning Discussion Advance care planning discussed with:: patient Office Procedures GNS Level of Care Nursing/Assessment Patient Status: Established Patient Nursing Assessment/Reassesment: Medication Reconciliation, Update PMH in EMR and Vital Signs Coordination of Care: Complex Care and Chronic Disease 1-5, Education Complex Pt/Fam, Consent,records obtained, informed consent, Results/Orders obtained and Staff clarify orders Special Needs: Language special needs Established Patient Charge Established Patient Point Assignment: 95 Established Patient Point Charge: EP Level 3 (80-115) MA Intake Visit Data Collection New Patient or Established: Established Patient (seen at [facility] within 3 years) Reason for Visit:: HIP PAIN Seen by Clinical Staff ONLY (RN/MA): No Verbal consent obtained for Telemed visit?: No 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 PCP or OBGYN visit in last 3 months: No Hx Now: No Do You Feel Safe at Home: Yes Authorities Contacted: N/A Questionairres Past Medical History Past Medical History Have you ever been diagnosed with any of the following: Neurological Problems Seizures: No Cardiology Problems Hypercholesterolemia: Yes Congestive Heart Failure: No Edema: No Hypertension: Yes Respiratory Problems Chronic Obstructive Pulmonary Disease (COPD): No Asthma: No Pneumonia: No Stomache/Intestinal Problems Obesity: Yes Genital/Urinary Problems Renal Disease: No Prostate Cancer: Yes Musculoskeletal Problems Arthritis: Yes Degenerative Disk Disease: Yes Head,Eye,Nose,Throat Problems Cataracts: Yes Endocrine Problems Diabetes Mellitus Type 1: No Diabetes Mellitus Type 2: Yes Blood Problems Anemia: No Sickle Cell Disease: No Psychologic Problems Depression: Yes Anxiety: Yes Other Problems Shingles: No Falls: No Blood Transfusions: No Blood Transfusion Reaction: No Anesthesia Reactions: No Chemotherapy: Yes Radiation Therapy: Yes MRSA: No VRSA: No Chicken Pox: No Subjective Visit Visit for: new patient and hip Immunization / Flu Flu Vaccine in the Last 12 Months: No Flu Vaccine Exclusion Criteria: No Exclusion Criteria History of Present Illness Chief complaint: HIP PAIN Date of injury / onset of symptoms: 3 MONTHS 79yo male with metastatic cancer to the spine from his prostate. He reports that he is low back pain. He has almost no pain in his groin. He is pointing to the back and he reports that he knows that he has metastatic cancer there. Personal History Occupation: RETIRED Red flag PMH: BMI BMI Counceling provided: Yes Pain Pain level (0-10): 3 Pain duration: ALL DAY Pain location: posterior and other (specify) (BACK PAIN ) Pain quality: sharp, dull and aching Pain timing: night and increases with activity Ambulatory data Ambulatory device: none Treatments Improvement with previous injections: No Improvement with PT: No Improvement with NSAIDS: no Review of Systems Review of Systems: All systems negative unless otherwise noted in HPI.
== END 2025-04-29 11:16 | disposition home or self-care (01) ==
LOC: HODSRG 10:23
PROVIDERS: PCP Family Medicine; Referring Provider Family Medicine; Supervising Provider Orthopaedic Surgery Adult Reconstructive Orthopaedic Surgery; Visit Provider Orthopaedic Surgery Adult Reconstructive Orthopaedic Surgery
DX: C61 Malignant neoplasm of prostate (principal); C79.51 Secondary malignant neoplasm of bone; M16.0 Bilateral primary osteoarthritis of hip
CPT/HCPCS: 99213; G0463

== ENCOUNTER → 2025-05-07 | Outpatient (CLI) | payer MEDICARE, MEDICAID, SELFPAY ==
[2025-05-07 11:29] LABS: Basophils % (Auto) 0 % (0-2.5); Eosinophils # (Auto) 0.3 Thou/mm3 (0.0-0.5); Eosinophils % (Auto) 4 % (0-10); Immature Granulocytes % (Auto) 0 % (0-0); Immature Granulocytes Auto 0.03 Thou/mm3 (0.00-0.00); Lymphocytes # (Auto) 1.1 Thou/mm3 (1.0-4.8); Lymphocytes % (Auto) 15 % (10-50); Mean Corpuscular HGB Conc 33.3 g/dl (31.0-37.0); Mean Corpuscular Hemoglobin 30.2 pg (25.0-35.0); Mean Corpuscular Volume 91 fL (80-100); Monocytes # (Auto) 0.7 Thou/mm3 (0.0-0.8); Monocytes % (Auto) 9 % (0-12); Neutrophils % (Auto) 71 % (37-80); Nucleated Red Blood Cell % 0 /100 WBC (0); Platelet Count 302 Thou/mm3 (140-440); RDW Standard Deviation 42.5 fL (35.1-43.9); Red Blood Count 3.97 Miln/mm3 (4.50-5.90); White Blood Count 7.1 Thou/mm3 (3.8-10.6)
[2025-05-07 11:42] LABS: Prostate Specific Antigen 2.98 ng/mL (0-4.00)
[2025-05-07 11:52] LABS: Alanine Aminotransferase 15 U/L (10-49); Albumin, Serum 4.1 gm/dL (3.4-4.8); Albumin/Globulin Ratio 1.3 (1.2-2.2); Alkaline Phosphatase 102 U/L (46-116); Anion Gap 7 (7-16); Aspartate Amino Transferase 18 U/L (0-34); BUN/Creatinine Ratio 12 Ratio (12-20); Bilirubin,Total 0.5 mg/dL (0.3-1.2); Blood Urea Nitrogen 16 mg/dL (9-23); Calcium 9.4 mg/dL (8.3-10.6); Calcium (Corrected) 9.4 mg/dL (8.5-10.1); Carbon Dioxide 32.6 mMol/L (20.0-31.0); Chloride 100 mMol/L (98-107); Creatinine (Component) 1.3 mg/dL (0.6-1.3); Globulin 3.1 gm/dL (2.3-3.5); Glucose 247 mg/dL (74-106); Osmolality,Calculated 288 (275-295); Sodium 140 mMol/L (136-145); Total Protein 7.2 gm/dL (5.7-8.2); eGFR 57 See Note
== END | disposition home or self-care (01) ==
LOC: SCTO 10:17
PROVIDERS: PCP Family Medicine; Referring Provider Radiology Therapeutic Radiology; Visit Provider Radiology Therapeutic Radiology
DX: C61 Malignant neoplasm of prostate (principal); C79.51 Secondary malignant neoplasm of bone
CPT/HCPCS: 36415; 80053; 84153; 85025

== ENCOUNTER 2025-05-12 15:00 | Outpatient (RCR) | payer MEDICARE, MEDICAID, SELFPAY ==
--- NOTE | 2025-05-12 16:12 | CTCFLWUP_ITS ---
[facility] [address] [place], [place] [address] FOLLOW-UP NOTE Date: 05/12/2025 MR#: [id number] Name: LIZA DHALIWAL : 1945 Dx: C61 Malignant neoplasm of prostate Patient with metastatic prostate CA recently had L-spine area treated with good pain relief. Receiving monthly Lupron injections under Dr. Lewis's direction. He is aware of additional treatments but he prefers to stay with the status quo. Patient told that he can make appointment with [facility] if he desires in the future. Electronically signed by: Ryder Warren M.D. 05/12/2025 4:09 PM
== END 2025-06-10 23:59 | disposition home or self-care (01) ==
LOC: SCTC 15:00
PROVIDERS: PCP Family Medicine; Referring Provider Family Medicine; Visit Provider Radiology Therapeutic Radiology
DX: C61 Malignant neoplasm of prostate (principal); C79.51 Secondary malignant neoplasm of bone; Z79.818 Long term (current) use of other agents affecting estrogen receptors and estrogen levels
CPT/HCPCS: 99212; G0463

== ENCOUNTER → 2025-08-30 | Outpatient (CLI) | payer MEDICARE, MEDICAID, SELFPAY ==
[2025-08-30 10:45] LABS: Anion Gap 8 (7-16); BUN/Creatinine Ratio 12 Ratio (12-20); Blood Urea Nitrogen 17 mg/dL (9-23); Calcium 10.2 mg/dL (8.3-10.6); Carbon Dioxide 32.9 mMol/L (20.0-31.0); Chloride 98 mMol/L (98-107); Creatinine (Component) 1.4 mg/dL (0.6-1.3); Glucose 350 mg/dL (74-106); Osmolality,Calculated 293 (275-295); Potassium 4.2 mMol/L (3.4-5.1); Sodium 139 mMol/L (136-145); eGFR 52 See Note
[2025-08-30 10:46] LABS: INR 1.1 (0.9-1.3); Partial Thromboplastin Time 26.3 Seconds (22.0-36.0); Prothrombin Time 11.2 Seconds (9.0-12.2)
[2025-08-30 10:49] LABS: Basophils # (Auto) 0.1 Thou/mm3 (0.0-0.2); Basophils % (Auto) 1 % (0-2.5); Eosinophils # (Auto) 0.2 Thou/mm3 (0.0-0.5); Eosinophils % (Auto) 3 % (0-10); Hematocrit 39.3 % (41.0-53.0); Hemoglobin 12.9 g/dL (13.5-16.0); Immature Granulocytes Auto 0.04 Thou/mm3 (0.00-0.00); Lymphocytes # (Auto) 1.1 Thou/mm3 (1.0-4.8); Lymphocytes % (Auto) 15 % (10-50); Mean Corpuscular HGB Conc 32.8 g/dl (31.0-37.0); Mean Corpuscular Hemoglobin 30.3 pg (25.0-35.0); Mean Corpuscular Volume 92 fL (80-100); Monocytes # (Auto) 0.6 Thou/mm3 (0.0-0.8); Monocytes % (Auto) 8 % (0-12); Neutrophils # (Auto) 5.1 Thou/mm3 (1.8-7.7); Neutrophils % (Auto) 72 % (37-80); Nucleated Red Blood Cell # 0.00 Thou/mm3 (0.00-0.00); Nucleated Red Blood Cell % 0 /100 WBC (0); Platelet Count 342 Thou/mm3 (140-440); RDW Standard Deviation 44.9 fL (35.1-43.9); Red Blood Count 4.26 Miln/mm3 (4.50-5.90); White Blood Count 7.1 Thou/mm3 (3.8-10.6)
== END | disposition home or self-care (01) ==
LOC: COPL 09:22
PROVIDERS: PCP Family Medicine; Referring Provider Internal Medicine; Visit Provider Internal Medicine
DX: I25.10 Atherosclerotic heart disease of native coronary artery without angina pectoris (principal); I48.91 Unspecified atrial fibrillation
CPT/HCPCS: 36415; 80048; 85025; 85610; 85730

== ENCOUNTER 2025-10-08 17:18 | Inpatient (IN) | payer MEDICARE, MEDICAID, SELFPAY ==
[2025-10-08 17:40] VITALS: BP 187/77; PULSE 88; RESP 20; TEMP 37.4; O2SAT 94; BMI 34.5
--- NOTE | 2025-10-08 17:45 | EKG_ITS ---
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
--- NOTE | 2025-10-08 17:45 | XR_ITS ---
EXAMINATION: AP upright chest single view TECHNIQUE: Upright AP portable chest single view Date and time: October 08, 2025, 1800 hours, comparison June 01, 2022 INDICATIONS: Chills vomiting weakness today. FINDINGS: Significant bilateral pneumonia Mild prominence left ventricle Ectatic thoracic aorta. Moderate osteopenia IMPRESSION: Significant bilateral pneumonia
--- NOTE | 2025-10-08 17:46 | PD.EDRME ---
Rapid Medical Screening Exam [facility] Arrival date/time: 10/08/25 17:18 79-year-old male with a history of hyperlipidemia, skin cancer, type 2 diabetes, presents to the emergency room with a chief complaint of weakness, near syncopal episodes, fatigue, fevers, body aches x 3 days I have greeted and performed a focused initial assessment of this patient. A comprehensive ED assessment and evaluation of the patient, analysis of all test results, and completion of the medical decision making process will be conducted by additional ED providers. Chief Complaint: Nausea/Vomiting/Diarrhea Vital signs: Vital Signs Temperature 99.3 F 10/08/25 17:40 Pulse Rate 88 10/08/25 17:40 Respiratory Rate 20 10/08/25 17:40 Blood Pressure 187/77 H 10/08/25 17:40 Pulse Oximetry (%) 94 L 10/08/25 17:40 Oxygen Delivery Method Room Air 10/08/25 17:40 Vital signs reviewed by provider: Yes Exam: Strong and regular rhythm S1 and S2 noted Clear bilateral lung sounds Soft nontender abdomen Clinical Impression: Anemia/orthostatic hypotension, dizziness
[2025-10-08 18:25] LABS: Collection Type, Urine Clean Catch
[2025-10-08 18:40] LABS: Bilirubin,Urine Negative (Negative); Blood,Urine Negative (Negative); Clarity,Urine Clear (Clear/Hazy); Color,Urine Lt-Yellow (Lt Yel-Yel); Culture Indicated,Urine Not Indicated; Glucose, Urine 4+ (Negative); Ketones,Urine Negative (Negative); Leukocyte Esterase,Urine Negative (Negative); Nitrite,Urine Negative (Negative); PH,Urine 7.0 (5.0-7.0); Protein,Urine Negative (Neg - Trace); RBC,Urine 2 /hpf (0-3); Specific Gravity,Urine 1.024 (1.001-1.035); Squamous Epithelial Cell,Urine < 1 /hpf (0-5); Urobilinogen,Urine Negative mg/dL (0.0-1.0); WBC,Urine 1 /hpf (0-5)
[2025-10-08 18:42] LABS: INR 1.1 (0.9-1.3); Partial Thromboplastin Time 22.5 Seconds (22.0-36.0); Prothrombin Time 11.4 Seconds (9.0-12.2)
[2025-10-08 18:44] LABS: B-Type Natriuretic Peptide 20 pg/mL (0-100)
[2025-10-08 18:45] LABS: Alanine Aminotransferase 19 U/L (10-49); Albumin, Serum 4.6 gm/dL (3.4-4.8); Albumin/Globulin Ratio 1.4 (1.2-2.2); Alkaline Phosphatase 110 U/L (46-116); Anion Gap 10 (7-16); Aspartate Amino Transferase 21 U/L (0-34); BUN/Creatinine Ratio 12 Ratio (12-20); Bilirubin,Total 0.7 mg/dL (0.3-1.2); Blood Urea Nitrogen 16 mg/dL (9-23); Calcium 9.6 mg/dL (8.3-10.6); Calcium (Corrected) 9.6 mg/dL (8.5-10.1); Carbon Dioxide 29.1 mMol/L (20.0-31.0); Chloride 99 mMol/L (98-107); Creatinine (Component) 1.3 mg/dL (0.6-1.3); Estimated Creatinine Clearance 46.8 mL/min (>60); Globulin 3.3 gm/dL (2.3-3.5); Glucose 281 mg/dL (74-106); Lipase 24 U/L (12-53); Magnesium 1.9 mg/dL (1.6-2.6); Osmolality,Calculated 286 (275-295); Potassium 3.7 mMol/L (3.4-5.1); Sodium 138 mMol/L (136-145); Total Protein 7.9 gm/dL (5.7-8.2); Troponin I < 0.020 ng/mL (0.0-0.045); eGFR 57 See Note
[2025-10-08 18:51] LABS: Basophils # (Auto) 0.0 Thou/mm3 (0.0-0.2); Basophils % (Auto) 0 % (0-2.5); Eosinophils # (Auto) 0.0 Thou/mm3 (0.0-0.5); Eosinophils % (Auto) 0 % (0-10); Hematocrit 38.6 % (41.0-53.0); Hemoglobin 13.0 g/dL (13.5-16.0); Immature Granulocytes Auto 0.06 Thou/mm3 (0.00-0.00); Lymphocytes # (Auto) 0.9 Thou/mm3 (1.0-4.8); Lymphocytes % (Auto) 6 % (10-50); Mean Corpuscular HGB Conc 33.7 g/dl (31.0-37.0); Mean Corpuscular Hemoglobin 30.7 pg (25.0-35.0); Mean Corpuscular Volume 91 fL (80-100); Monocytes # (Auto) 1.0 Thou/mm3 (0.0-0.8); Monocytes % (Auto) 7 % (0-12); Neutrophils # (Auto) 12.5 Thou/mm3 (1.8-7.7); Neutrophils % (Auto) 86 % (37-80); Nucleated Red Blood Cell # 0.00 Thou/mm3 (0.00-0.00); Nucleated Red Blood Cell % 0 /100 WBC (0); Platelet Count 266 Thou/mm3 (140-440); RDW Standard Deviation 44.1 fL (35.1-43.9); Red Blood Count 4.23 Miln/mm3 (4.50-5.90); White Blood Count 14.5 Thou/mm3 (3.8-10.6)
[2025-10-08 18:52] VITALS: TEMP 38.2
--- NOTE | 2025-10-08 18:54 | PD.EDNV ---
Nausea/Vomit./Diarrhea-RME/HPI General Chief complaint: Nausea/Vomiting/Diarrhea Stated complaint: SPITTING UP BLOOD Time Seen by Provider: 10/08/25 18:54 Arrival date/time: 10/08/25 17:18 RME / HPI RME / HPI Narrative: 10/08/25 17:18 79-year-old male with a history of hyperlipidemia, skin cancer, type 2 diabetes, presents to the emergency room with a chief complaint of weakness, near syncopal episodes, fatigue, fevers, body aches x 3 days I have greeted and performed a focused initial assessment of this patient. A comprehensive ED assessment and evaluation of the patient, analysis of all test results, and completion of the medical decision making process will be conducted by additional ED providers. See [facility] for Dr. Warren's HPI Documentation. Exam: Strong and regular rhythm S1 and S2 noted Clear bilateral lung sounds Soft nontender abdomen Impression: Anemia/orthostatic hypotension, dizziness Related Data Home Medications ?Medication ?Instructions ?Recorded ?Confirmed benazepril 40 mg tablet 80 mg PO QDAY 05/05/19 04/29/25 metformin 500 mg tablet 500 mg PO BID 05/05/19 04/29/25 carvedilol 25 mg tablet 25 mg PO BID 08/19/21 04/29/25 atorvastatin 20 mg tablet 20 mg PO QDAY 04/26/23 04/29/25 hydrochlorothiazide 50 mg tablet 50 mg PO QDAY 04/26/23 04/29/25 insulin lispro protamine-lispro 50 unit subcut BID 04/26/23 04/29/25 100 unit/mL (75-25) subcutaneous pen (Humalog Mix 75-25 KwikPen) clonidine HCl 0.1 mg tablet 0.1 mg PO DAILY 06/24/23 04/29/25 semaglutide 3 mg tablet (Rybelsus) 3 mg PO QDAY 06/24/23 04/29/25 Previous Rx's ?Medication ?Instructions ?Recorded hydrocodone 5 mg-acetaminophen 325 1 tab PO Q6H PRN pain #14 tabs 01/20/24 mg tablet Allergies Allergy/AdvReac Type Severity Reaction Status Date / Time No Known Allergies Allergy Verified 10/08/25 17:22 Review of Systems Review of Systems Systems Reviewed: All systems reviewed, normal except as documented Past Medical History Past Medical History CARDIAC: Positive Cardiac Disorders, Hypercholesterolemia and Hypertension GASTROINTESTINAL: Positive Gastrointestinal Disorders and Obesity GENITOURINARY: Positive Prostate Cancer MUSCULOSKELETAL: Positive Musculoskeletal Disorders, Arthritis and Degenerative Disk Disease ENT: Positive Cataracts ENDOCRINE: Positive Endocrine Disorders and Diabetes Mellitus Type 2 PSYCHO/SOCIAL: Positive Depression and Anxiety OTHER HISTORY: Positive Chemotherapy, Radiation Therapy and Prostate Cancer Family History FAMILY HISTORY: Positive Family Surgery Surgical History SURGICAL: Positive Transurethral Resection ED Exam Narrative Physical exam: See MDM for Dr. Warren's Physical Exam Documentation. Course Quality Measures none Orders Category Date Time Status COVID-19 Screening Questionnaire NOW Care 10/08/25 23:48 Active Decision to Admit X1 Care 10/08/25 23:48 Completed EKG (ED ONLY) *Do not use* NOW Care 10/08/25 17:45 Completed Saline [Insert IV] NOW Care 10/08/25 18:55 Active EKG (ED Only) Stat Exams 10/08/25 17:45 Draft XR chest 1V portable Stat Exams 10/08/25 17:45 Completed ABG [Arterial Blood Gas] Stat Lab 10/08/25 03:29 Completed B-Type Natriuretic Peptide Stat Lab 10/08/25 18:15 Completed Beta Hydroxybutyrate Stat Lab 10/08/25 19:25 Completed Bilirubin,Direct Stat Lab 10/08/25 19:25 Completed Blood Culture (Lab) Stat Lab 10/08/25 19:31 Received CBC Stat Lab 10/08/25 18:15 Completed COVID-19 Antigen (In-House) Stat Lab 10/08/25 19:44 Completed CRP [C-Reactive Protein] Stat Lab 10/08/25 19:25 Completed Comprehensive Metabolic Panel Stat Lab 10/08/25 18:15 Completed ESR [Sed Rate (ESR)] Stat Lab 10/08/25 19:25 Completed Influenza A & B Rapid Panel Stat Lab 10/08/25 19:44 Completed Lactate (Lactic Acid) Stat Lab 10/08/25 19:25 Completed Lipase Stat Lab 10/08/25 18:15 Completed Magnesium Stat Lab 10/08/25 18:15 Completed Partial Thromboplastin Time Stat Lab 10/08/25 18:15 Completed Procalcitonin Stat Lab 10/08/25 19:25 Completed Prothrombin Time with INR Stat Lab 10/08/25 18:15 Completed TSH [Thyroid Stimulating Hormone] Stat Lab 10/08/25 19:25 Completed Troponin I Stat Lab 10/08/25 18:15 Completed Urinalysis, C/S if Indicated Stat Lab 10/08/25 18:01 Completed VBG [Venous Blood Gas] Stat Lab 10/08/25 19:25 Completed Albuterol/Ipratr Rt Ely [Duoneb Rt Ely] Med 10/08/25 21:59 Discontinued 3 ml INH X1 ONE Azithromycin Inj [Zithromax Inj] 500 mg Med 10/08/25 18:56 Discontinued Sodium Chloride 0.9% 250 ml [Ns] 250 ml IV X1 MethylPREDNISolone.* [SoluMEDROL Inj] Med 10/08/25 21:59 Discontinued 125 mg IVP X1 ONE Ondansetron Inj [Zofran Inj] Med 10/08/25 18:56 Discontinued 4 mg IVP X1 ONE Ringers Lactated 1000 ml [Lactated Ringers] 1,000 ml Med 10/08/25 18:56 Discontinued IV 1,000 mls/hr cefTRIAXone/D5w 1gm IV premix [Rocephin/D5w 1gm IV Med 10/08/25 18:56 Discontinued premix] 1 gm in 50 ml IV X1 cloNIDine HCL [Catapres] Med 10/08/25 18:57 Discontinued 0.2 mg PO X1 ONE Vital Signs Vital signs: Vital Signs Temperature 99.3 F 10/08/25 17:40 Pulse Rate 88 10/08/25 17:40 Respiratory Rate 20 10/08/25 17:40 Blood Pressure 187/77 H 10/08/25 17:40 Pulse Oximetry (%) 94 L 10/08/25 17:40 Oxygen Delivery Method Room Air 10/08/25 17:40 Nausea/Vomiting/Diarrhea MDM Narrative MDM Narrative:: This section includes all my notes and documentations, including HPI, PE, and ED course. Ashok Warren MD HPI: 79 y/o male with Hx of Prostate CA, HTN, and Type II DM presents with a few days of vomiting, subjective fever, chills, body aches, fatigue and malaise, and near syncopal episodes. No other complaints. ROS: All negative except as documented in HPI. Physical Exam: General:? Alert and oriented.? Appearance of malaise noted. Fever noted. Hypoxia noted. High BP noted. Eyes:? Conjunctivae and lids clear.? EOMI.? PERRL. ENT:? No nasal congestion.? Pharynx normal.? Tympanic membrane normal bilaterally.??? Neck:? Supple.? No carotid bruit.? No JVD.?? Heart:? RRR.? Lungs:? No respiratory distress.? Good air movement with rhonchi and rales. Abdomen:? Soft and nontender.? Normal bowel sounds.? No distension.? No rebound or guarding.?? Back:? No CVA tenderness.?? Legs:? No clubbing, cyanosis, edema.? Skin:? Warm and dry.?? Neuro:? Alert and oriented X 3.? Cranial Nerves II-XII grossly intact.? No peripheral motor deficits. I reviewed all diagnostic test results: My interpretation of the EKG is: Sinus rhythm (73 bpm) with nonspecific ST-T changes. My interpretation of the chest x-ray is bilateral infiltrates. Blood tests and urine tests remarkable for WBC 14.5, ESR 33, Glu 281, LA 2.2, CRP 1.6, procalcitonin 0.64. Covid/Influenza are negative. At this point, diagnoses include: Acute respiratory failure with hypoxia Pneumonia Vomiting Fever Hyperglycemia High BP Treatment here included: IVF Zofran 4 mg IV DuoNeb Solu-Medrol 125 mg IV Rocephin 1 g IV Zithromax 500 mg IV Oral clonidine 0.2 mg No significant improvement noted. I discussed the case with our hospitalist. About the presentation and exam and diagnostics and treatments here. And need of further care in the hospital. Will accept the patient. Ashok Warren MD Patient data External records reviewed:: [facility] previous records (Reviewed prior ED records from 02/15/25. Patient was seen for Chronic pain due to malignant neoplastic disease.) Clinical information provided by:: patient Social determinants that could affect healthcare access:: none Patient has the following chronic illnesses:: Prostate CA, Hypercholesterolemia, Hypertension, Obesity, Arthritis, Degenerative Disk Disease, Cataracts, Diabetes Mellitus Type 2, Depression and Anxiety How is presenting disease/condition affected by chronic disease/condition?: exacerbated by Evaluation data The following diagnostics were reviewed and interpreted by me:: lab results, radiology exam(s) and EKG tracing(s) Lab and/or radiology exams considered but not ordered:: None Interpretation Summary: I reviewed all diagnostic test results: My interpretation of the EKG is: Sinus rhythm (73 bpm) with nonspecific ST-T changes. My interpretation of the chest x-ray is bilateral infiltrates. Blood tests and urine tests remarkable for WBC 14.5, ESR 33, Glu 281, LA 2.2, CRP 1.6, procalcitonin 0.64. Covid/Influenza are negative. Medications / Prescriptions Medications / Prescriptions considered but not ordered:: None Medication administrations:: Medication Administration History Acetaminophen (Acetaminophen 325 Mg Tablet) 650 mg PO Q6H PRN PRN Reason: Fever >100.4 or pain 1-3 Stop: 11/07/25 23:58 Hydrocodone Bitart/Acetaminophen (Hydrocodone/Apap 5/325 Tablet) 1 tab PO Q4HR PRN PRN Reason: PAIN SCALE 4-6 (Moderate Stop: 10/13/25 23:58 Amlodipine Besylate (Amlodipine Besylate 5 Mg Tablet) 10 mg PO QDAY [facility] Stop: 11/08/25 08:59 Atorvastatin Calcium (Atorvastatin Calcium 10 Mg Tablet) 40 mg PO QDAY [facility] Stop: 11/08/25 08:59 Carvedilol (Carvedilol 12.5 Mg Tablet) 25 mg PO BID [facility] Stop: 11/08/25 08:59 Dextrose (Dextrose 50%-Water Inj 50 Ml Syringe) 25 ml IV Q15MIN PRN PRN Reason: BG 50-70 responsive npo pt Stop: 11/08/25 00:19 Dextrose (Dextrose 50%-Water Inj 50 Ml Syringe) 50 ml IV Q15MIN PRN PRN Reason: BG <50 OR BG <70 & pt unresponsive Stop: 11/08/25 00:19 Docusate Sodium (Docusate Sod 100 Mg Capsule) 100 mg PO QDAY [facility]; Protocol Stop: 11/08/25 08:59 Glucagon (Glucagon Inj 1 Mg Vial) 1 mg IM Q15MIN PRN PRN Reason: BG <70, and no IV access Heparin Sodium (Porcine) (Heparin Sod Inj 5000 Unit/Ml Vial) 5,000 unit SC Q12HR [facility] Stop: 10/23/25 08:59 Hydrochlorothiazide (Hydrochlorothiazide 12.5 Mg Capsule) 50 mg PO QDAY [facility] Stop: 11/08/25 08:59 Ceftriaxone Sodium/Dextrose (Rocephin/D5w 1gm Iv Premix) 1 gm in 50 mls @ 100 mls/hr IV QDAY [facility] Stop: 10/16/25 08:59 Azithromycin 500 mg/ Sodium (Chloride) 250 mls @ 250 mls/hr IV QDAY [facility] Stop: 10/16/25 08:59 Insulin Human Lispro (Insulin Lispro (Admelog) 1 Unit/0.01 Ml Unit) 0 unit SC ACHS [facility]; Protocol Stop: 11/08/25 07:29 Lisinopril (Lisinopril 2.5 Mg Tablet) 10 mg PO QDAY [facility] Stop: 11/08/25 08:59 Morphine Sulfate (Morphine Sulf Inj 4 Mg/Ml Vial) 1 mg IVP Q4HR PRN PRN Reason: PAIN SCALE 7-10 (Severe Stop: 10/13/25 23:58 Ondansetron HCl (Ondansetron Inj 2 Mg/Ml Inj 2 Ml) 4 mg IVP Q6H PRN; Protocol PRN Reason: NAUSEA OR VOMITING Stop: 11/07/25 23:58 Pantoprazole Sodium (Pantoprazole Inj 40 Mg Vial) 40 mg IVP QDAY [facility] Stop: 11/08/25 08:59 Discontinued Medications Albuterol/Ipratropium (Albuterol/Ipratropium (Duoneb) Rt Ely 3 Ml Nebu) 3 ml INH X1 ONE Stop: 10/08/25 22:00 Last Admin: 10/08/25 22:23 Dose: 3 ml Documented By: GLORIA Clonidine (Clonidine Hcl 0.1 Mg Tablet) 0.2 mg PO X1 ONE Stop: 10/08/25 18:58 Last Admin: 10/08/25 21:05 Dose: Not Given Documented By: JAXON Non-Admin Reason: Change of Condition Lactated Ringer's (Lactated Ringers) 1,000 mls @ 1,000 mls/hr IV .Q1H ONE Stop: 10/08/25 19:55 Last Infusion: 10/08/25 22:11 Dose: Infused Documented By: Admin: 10/08/25 21:11 Dose: 1,000 mls/hr Documented By: JAXON Azithromycin 500 mg/ Sodium (Chloride) 250 mls @ 250 mls/hr IV X1 ONE Stop: 10/08/25 19:55 Last Infusion: 10/08/25 22:25 Dose: Infused Documented By: Admin: 10/08/25 21:25 Dose: 250 mls/hr Documented By: JAXON Ceftriaxone Sodium/Dextrose (Rocephin/D5w 1gm Iv Premix) 1 gm in 50 mls @ 100 mls/hr IV X1 ONE Stop: 10/08/25 19:25 Last Infusion: 10/08/25 21:36 Dose: Infused Documented By: Admin: 10/08/25 21:10 Dose: 100 mls/hr Documented By: JAXON Lactated Ringer's (Lactated Ringers) 1,000 mls @ 999 mls/hr IV .Q1H1M ONE Stop: 10/09/25 01:05 Last Admin: 10/09/25 00:33 Dose: 999 mls/hr Documented By: Lactated Ringer's (Lactated Ringers) 1,000 mls @ 999 mls/hr IV .Q1H1M ONE Stop: 10/09/25 03:30 Last Admin: 10/09/25 02:43 Dose: 999 mls/hr Documented By: Influenza Virus Vaccine Quadrival (Influenza Virus 0.5 Ml Syringe ) 0.5 ml IMi .ONCE ONE Stop: 10/09/25 03:31 Insulin Lispro Protam/Lispro Human (Insulin Npl/Lisp 1 Unit/0.01 Ml (Humalog 75/25)(Per Unit)) 40 unit SC QDAY [facility] Stop: 11/08/25 08:59 Methylprednisolone Sodium Succinate (Methylprednisolone Sod Succ 62.5 Mg/Ml 2ml Vial) 125 mg IVP X1 ONE Stop: 10/08/25 22:00 Last Admin: 10/08/25 22:08 Dose: 125 mg Documented By: Ondansetron HCl (Ondansetron Inj 2 Mg/Ml Inj 2 Ml) 4 mg IVP X1 ONE; Protocol Stop: 10/08/25 18:57 Last Admin: 10/08/25 21:11 Dose: 4 mg Documented By: JAXON Sodium Chloride (Sodium Chloride Rt 10% 15 Ml Nebu) 5 ml INH X1 ONE Stop: 10/09/25 00:05 Last Admin: 10/09/25 03:36 Dose: 5 ml Documented By: LIS Treatment here from me included: IVF Zofran 4 mg IV DuoNeb Solu-Medrol 125 mg IV Rocephin 1 g IV Zithromax 500 mg IV Oral clonidine 0.2 mg Consultations Consultation(s) initiated? (list below): Yes Consultation #1 (Physician, Specialty, Details): I discussed the case with our hospitalist. About the presentation and exam and diagnostics and treatments here. And need of further care in the hospital. Will accept the patient. Time: 21:21 Diagnosis Nausea Differential Diagnosis: food poisoning, gastroenteritis, clostridium difficile infection, drug-induced nausea and vomiting, dehydration and other (Anemia, Influenza, Pneumonia, Viral Illness) Most likely diagnosis given after review of the tests above:: At this point, diagnoses include: Acute respiratory failure with hypoxia Pneumonia Vomiting Fever Hyperglycemia High BP Admission Indicated Admission indicated?: indicated Explain why admission is indicated or not indicated:: Acute respiratory failure with hypoxia Pneumonia Vomiting Fever Admission Request Was there a request for admission?: Yes Admission Attestation Admission request attestation: Discussed case with Hospitalist service regarding admission. Discussed patients ED course, exam findings, labs, and radiology results. Agreed to accept the patient for admission. Disposition Plan Disposition Plan: Admit Discharge Plan Plan Patient Disposition: Admit Acute Care w/in Hospital Problem List Clinical Impression: Acute respiratory failure with hypoxia, Pneumonia, Vomiting, Fever, Hyperglycemia, Hypertension
[2025-10-08 19:49] LABS: Lactate (Lactic Acid) 2.2 mMol/L (0.4-2.0)
[2025-10-08 19:52] LABS: Sed Rate (ESR) 33 mm/hr (0-20)
[2025-10-08 19:57] LABS: Base Excess, Venous 8 (-3-3); O2 Saturation, Venous 101 % (96-97); PCO2, Venous 23 mmHg (36-56); PO2, Venous 208 mmHg (15-58); pH, Venous 7.68 (7.33-7.66)
[2025-10-08 20:02] LABS: Beta Hydroxybutyrate 0.1 mmol/L (<0.6)
[2025-10-08 20:19] LABS: Bilirubin,Direct 0.2 mg/dL (0.0-0.3); C-Reactive Protein 1.6 mg/dL (0.0-0.9); Procalcitonin 0.64 ng/ml (0.0-0.49); Thyroid Stimulating Hormone 0.66 uIU/mL (0.55-4.78)
[2025-10-08 20:27] LABS: COVID-19 Antigen (In-House) Negative (Negative); Influenza A Ag Negative; Influenza B Ag Negative
[2025-10-08 21:06] VITALS: BP 155/70; PULSE 75; RESP 20
[2025-10-08] MEDS: cefTRIAXone/D5w 1gm IV premix 1 GM/50 ML BAG IV (21:10)
[2025-10-08] MEDS: ONDANSETRON INJ 2 MG/ML INJ 2 ML 4 MG IVP (21:11)
[2025-10-08] MEDS: RINGERS LACTATED 1000 ML 1,000 ML IV (21:11)
[2025-10-08] MEDS: AZITHROMYCIN INJ 500 MG in SODIUM CHLORIDE 0.9% 250 ML 250 ML 250 MG IV (21:25)
[2025-10-08 22:00] VITALS: BP 155/75; PULSE 65; RESP 22; TEMP 36.9; O2SAT 97
[2025-10-08] MEDS: MethylPREDNISolone SOD SUCC 62.5 MG/ML 2ML VIAL 125 MG IVP (22:08)
--- NOTE | 2025-10-08 22:14 | PC.NURSE ---
Patient care assumed, Patient is awake, alert and oriented x 3, he speaks Tristanian only, he came in from home secondary to a ground level fall and feeling sick for the past 3 days, patient endorsed vomiting yesterday and today. Patient denies nausea or vomiting at this time. X-ray indicative of Pneumonia, IV antibiotics and fluids initiated, steroid IV medication administered, awaiting on RT to administer Duoneb medication. Caregiver at bedside endorsing patient had a ground level fall this morning as he attempted to exit his bed. Patient uses a FWW at home for safe ambulation. SpO2 87 % at room air, patient was placed on 2 liters of oxygen per minute via NC with SpO2 improving to 97%.
[2025-10-08] MEDS: ALBUTEROL/IPRATROPIUM (Duoneb) RT SOL 3 ML NEBU INH (22:23)
[2025-10-08 22:24] VITALS: PULSE 65; RESP 16; O2SAT 100
[2025-10-08 22:44] LABS: Reflex Lactate? Y
[2025-10-09] VITALS (19 sets, daily range): BP systolic 125–191; BP diastolic 61–105; PULSE 51–82; RESP 14–87; TEMP 36.1–37.2; O2SAT 92–99; BMI 34.5
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
[2025-10-09] MEDS: RINGERS LACTATED 1000 ML 1,000 ML 999 ML IV ×2 (00:33→02:43)
[2025-10-09 01:52] LABS: Lactate (Lactic Acid) 2.6 mMol/L (0.4-2.0)
[2025-10-09 03:34] LABS: Base Excess 5 (-3-3); HCO3 30 mEq/L (20-26); Inspired Oxygen, FIO2 21 %; O2 Saturation 99 % (91-98); PCO2 47 mmHg (32.0-48.0); PO2 98 mmHg (83-108); pH, Arterial 7.42 (7.35-7.45)
[2025-10-09 03:35] LABS: Allen Test Performed/OK; Puncture Site Right Radial
[2025-10-09] MEDS: SODIUM CHLORIDE RT 10% 15 ML NEBU 5 ML INH (03:36)
[2025-10-09 04:51] LABS: Reflex Lactate? Y
--- NOTE | 2025-10-09 05:21 | PC.NURSE ---
Patient report given to Hawa KAPADIA who will be taking over patient care at this time.
--- NOTE | 2025-10-09 05:57 | PC.NURSE ---
NOTIFIED PROVIDER UTO BP 191/78. PROVIDER WILL PLACE ORDERS.
[2025-10-09 06:12] LABS: Lactate (Lactic Acid) 2.0 mMol/L (0.4-2.0)
[2025-10-09 06:29] LABS: Basophils # (Auto) 0.0 Thou/mm3 (0.0-0.2); Basophils % (Auto) 0 % (0-2.5); Eosinophils # (Auto) 0.0 Thou/mm3 (0.0-0.5); Eosinophils % (Auto) 0 % (0-10); Hematocrit 36.5 % (41.0-53.0); Hemoglobin 12.1 g/dL (13.5-16.0); Immature Granulocytes Auto 0.05 Thou/mm3 (0.00-0.00); Lymphocytes # (Auto) 1.1 Thou/mm3 (1.0-4.8); Lymphocytes % (Auto) 8 % (10-50); Mean Corpuscular HGB Conc 33.2 g/dl (31.0-37.0); Mean Corpuscular Hemoglobin 30.4 pg (25.0-35.0); Mean Corpuscular Volume 92 fL (80-100); Monocytes # (Auto) 0.2 Thou/mm3 (0.0-0.8); Monocytes % (Auto) 2 % (0-12); Neutrophils # (Auto) 12.7 Thou/mm3 (1.8-7.7); Neutrophils % (Auto) 90 % (37-80); Nucleated Red Blood Cell # 0.00 Thou/mm3 (0.00-0.00); Nucleated Red Blood Cell % 0 /100 WBC (0); Platelet Count 275 Thou/mm3 (140-440); RDW Standard Deviation 44.8 fL (35.1-43.9); Red Blood Count 3.98 Miln/mm3 (4.50-5.90); White Blood Count 14.0 Thou/mm3 (3.8-10.6)
[2025-10-09 06:48] LABS: Alanine Aminotransferase 18 U/L (10-49); Albumin, Serum 4.1 gm/dL (3.4-4.8); Albumin/Globulin Ratio 1.3 (1.2-2.2); Alkaline Phosphatase 100 U/L (46-116); Anion Gap 10 (7-16); Aspartate Amino Transferase 18 U/L (0-34); BUN/Creatinine Ratio 14 Ratio (12-20); Bilirubin,Total 0.5 mg/dL (0.3-1.2); Blood Urea Nitrogen 20 mg/dL (9-23); Calcium 9.3 mg/dL (8.3-10.6); Calcium (Corrected) 9.3 mg/dL (8.5-10.1); Carbon Dioxide 29.7 mMol/L (20.0-31.0); Chloride 99 mMol/L (98-107); Creatinine (Component) 1.4 mg/dL (0.6-1.3); Estimated Creatinine Clearance 43.5 mL/min (>60); Globulin 3.1 gm/dL (2.3-3.5); Magnesium 1.9 mg/dL (1.6-2.6); Osmolality,Calculated 300 (275-295); Phosphorous 3.1 mg/dL (2.4-5.1); Potassium 4.2 mMol/L (3.4-5.1); Sodium 139 mMol/L (136-145); Total Protein 7.2 gm/dL (5.7-8.2); eGFR 52 See Note
[2025-10-09 06:53] LABS: Glucose Estimated Average 200 mg/dL (80-131); Hemoglobin A1C 8.6 % Hgb (4.8-6.0)
[2025-10-09 06:55] LABS: Glucose 462 mg/dL (74-106)
[2025-10-09] MEDS: INSULIN LISPRO (AdmeLOG) 1 UNIT/0.01 ML UNIT SC ×4 (07:22→20:32)
[2025-10-09] MEDS: INSULIN DEGLUDEC 5 UNIT/0.05 ML (PER 5 UNITS) 45 UNIT SC (07:22)
[2025-10-09] MEDS: HEPARIN SOD INJ 5000 UNIT/ML VIAL SC (09:46)
[2025-10-09] MEDS: ATORVASTATIN CALCIUM 10 MG TABLET 40 MG PO (09:47)
[2025-10-09] MEDS: DOCUSATE SOD 100 MG CAPSULE PO (09:49)
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
[2025-10-09 15:14] LABS: Cocci Serology, IgM Negative (Negative)
[2025-10-09] MEDS: Artificial Tears 225 DROP/15 ML BTL BOTH EYES (19:56)
[2025-10-09] MEDS: cefTRIAXone/D5w 1gm IV premix 1 GM/50 ML BAG IV (20:23)
[2025-10-09] MEDS: AZITHROMYCIN INJ 500 MG in SODIUM CHLORIDE 0.9% 250 ML 250 ML 250 MG IV (21:15)
--- NOTE | 2025-10-09 22:26 | EKG_ITS ---
[facility] Test Date: 2025-10-09 Pat Name: LIZA DHALIWAL Department: Room: S379A Gender: Male Production Support Specialist: JAYA : 1945 Requested By: Yamil Garcia Order Number: [id number] Reading MD: Yamil Garcia Measurements Intervals [place] Rate: 46 P: 11 NM: 208 QRS: 26 QRSD: 113 T: 48 QT: 506 QTc: 444 Interpretive Statements SINUS BRADYCARDIA POSSIBLE INFERIOR MYOCARDIAL INFARCTION , PROBABLY OLD Compared to ECG 10/08/2025 17:48:55 Myocardial infarct finding now present Sinus rhythm no longer present Incomplete right bundle-branch block no longer present /store/S0/[id number]
[2025-10-10] VITALS (10 sets, daily range): BP systolic 99–150; BP diastolic 54–76; PULSE 45–58; RESP 15–94; TEMP 36.2–36.8; O2SAT 93–96; BMI 33.8
[2025-10-10 05:39] LABS: Basophils # (Auto) 0.0 Thou/mm3 (0.0-0.2); Basophils % (Auto) 0 % (0-2.5); Eosinophils # (Auto) 0.1 Thou/mm3 (0.0-0.5); Eosinophils % (Auto) 1 % (0-10); Hematocrit 30.3 % (41.0-53.0); Hemoglobin 9.9 g/dL (13.5-16.0); Immature Granulocytes Auto 0.04 Thou/mm3 (0.00-0.00); Lymphocytes # (Auto) 1.7 Thou/mm3 (1.0-4.8); Lymphocytes % (Auto) 15 % (10-50); Mean Corpuscular HGB Conc 32.7 g/dl (31.0-37.0); Mean Corpuscular Hemoglobin 30.5 pg (25.0-35.0); Mean Corpuscular Volume 93 fL (80-100); Monocytes # (Auto) 1.1 Thou/mm3 (0.0-0.8); Monocytes % (Auto) 10 % (0-12); Neutrophils # (Auto) 8.3 Thou/mm3 (1.8-7.7); Neutrophils % (Auto) 74 % (37-80); Nucleated Red Blood Cell # 0.00 Thou/mm3 (0.00-0.00); Nucleated Red Blood Cell % 0 /100 WBC (0); Platelet Count 267 Thou/mm3 (140-440); RDW Standard Deviation 45.3 fL (35.1-43.9); Red Blood Count 3.25 Miln/mm3 (4.50-5.90); White Blood Count 11.2 Thou/mm3 (3.8-10.6)
[2025-10-10 06:00] LABS: Alanine Aminotransferase < 7 U/L (10-49); Albumin, Serum 3.5 gm/dL (3.4-4.8); Albumin/Globulin Ratio 1.5 (1.2-2.2); Alkaline Phosphatase 78 U/L (46-116); Anion Gap 8 (7-16); Aspartate Amino Transferase 19 U/L (0-34); BUN/Creatinine Ratio 22 Ratio (12-20); Bilirubin,Total 0.4 mg/dL (0.3-1.2); Blood Urea Nitrogen 29 mg/dL (9-23); Calcium 9.3 mg/dL (8.3-10.6); Calcium (Corrected) 9.7 mg/dL (8.5-10.1); Carbon Dioxide 32.2 mMol/L (20.0-31.0); Chloride 102 mMol/L (98-107); Creatinine (Component) 1.3 mg/dL (0.6-1.3); Estimated Creatinine Clearance 45.9 mL/min (>60); Globulin 2.3 gm/dL (2.3-3.5); Glucose 130 mg/dL (74-106); Magnesium 2.0 mg/dL (1.6-2.6); Osmolality,Calculated 290 (275-295); Phosphorous 3.2 mg/dL (2.4-5.1); Potassium 3.5 mMol/L (3.4-5.1); Sodium 142 mMol/L (136-145); Total Protein 5.8 gm/dL (5.7-8.2); eGFR 57 See Note
--- NOTE | 2025-10-10 08:33 | PC.NURSE ---
Notified Dr. Woo of HR 54 pt has been sinus alexander the whole night per MD hold carvedilol
[2025-10-10] MEDS: DOCUSATE SOD 100 MG CAPSULE PO (08:42)
[2025-10-10] MEDS: HEPARIN SOD INJ 5000 UNIT/ML VIAL SC (08:44)
[2025-10-10] MEDS: ATORVASTATIN CALCIUM 10 MG TABLET 40 MG PO (08:44)
[2025-10-10] MEDS: INSULIN DEGLUDEC 5 UNIT/0.05 ML (PER 5 UNITS) 45 UNIT SC (08:45)
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
[2025-10-10] MEDS: LEVOFLOXACIN 250 MG TABLET 750 MG PO (13:58)
[2025-10-11 14:03] LABS: Cocci Serology, IgG Negative (Negative)
== END 2025-10-10 14:20 | disposition home or self-care (01) | DRG 194 ==
LOC: SERX 10-09 → SERHOLD 10-09 00:19 → S3SX 10-09 12:48
PROVIDERS: Nurse Practitioner Family; Admitting Provider Student in an Organized Health Care Education/Training Program; Emergency Provider Emergency Medicine; PCP Family Medicine; Visit Provider Student in an Organized Health Care Education/Training Program
DX: J18.9 Pneumonia, unspecified organism (principal); E87.3 Alkalosis; E11.65 Type 2 diabetes mellitus with hyperglycemia; I10 Essential (primary) hypertension; E78.00 Pure hypercholesterolemia, unspecified; I16.0 Hypertensive urgency; Z79.4 Long term (current) use of insulin; Z79.899 Other long term (current) drug therapy; Z85.46 Personal history of malignant neoplasm of prostate; Z85.828 Personal history of other malignant neoplasm of skin
CPT/HCPCS: 36415; 36600; 71045; 80053; 81001; 82010; 82248; 82803; 83036; 83605; 83690; 83735; 83880; 84100; 84145; 84443; 84484; 85025; 85610; 85652; 85730; 86140; 86331; 86635; 87040; 87077; 87186; 87205; 87502; 87811; 89220; 93005; 93225; 94640; 96365; 96375; 99284; A9270; J0456; J0696; J1644; J1815; J2405; J2470; J2919; J7050; J7120